=== PATIENT | female | born 1960 | race American Indian/Alaskan Native ===

== ENCOUNTER 2019-03-18 19:52 | Emergency (ER) | payer MEDICARE ==
[2019-03-18 19:59] VITALS: BP 152/92
--- NOTE | 2019-03-18 20:14 | Emergency Department Report ---
Blank Doc - Documentation Documentation: This is a 58-year-old female that presents with numbness sensation to bilateral legs and hands with pain. This initial assessment/diagnostic orders/clinical plan/treatment(s) is/are subject to change based on patient's health status, clinical progression and re- assessment by fellow clinical providers in the ED. Further treatment and workup at subsequent clinical providers discretion. Patient/guardians urged not to elope from the ED as their condition may be serious if not clinically assessed and managed. Initial orders include: 1- Patient sent to [facility] for further evaluation and treatment 2- labs
[2019-03-18 20:41] LABS: Basophils % (Auto) 0.6 % (0.0-1.8); Eosinophils # (Auto) 0.2 K/mm3 (0.0-0.4); Eosinophils % (Auto) 3.1 % (0.0-4.3); Hematocrit 37.4 % (30.3-42.9); Hemoglobin 12.6 gm/dl (10.1-14.3); Lymphocytes # (Auto) 3.4 K/mm3 (1.2-5.4); Lymphocytes % (Auto) 47.5 % (13.4-35.0); Mean Corpuscular HGB Conc 34 % (30-34); Mean Corpuscular Volume 86 fl (79-97); Monocytes # (Auto) 0.5 K/mm3 (0.0-0.8); Monocytes % (Auto) 7.5 % (0.0-7.3); Platelet Count 264 K/mm3 (140-440); Red Blood Count 4.33 M/mm3 (3.65-5.03); Red Cell Distribution Width 16.5 % (13.2-15.2)
[2019-03-18 20:55] LABS: BUN/Creatinine Ratio 19; Blood Urea Nitrogen 17 mg/dL (7-17); Calcium 9.6 mg/dL (8.4-10.2); Hemolysis Index 8
[2019-03-18] MEDS ORDERED: NORCO 5/325 PO ONE (22:09)
--- NOTE | 2019-03-18 22:13 | Emergency Department Report ---
ED General Adult HPI - General Chief complaint: Pain General Stated complaint: BODY PAIN Time Seen by Provider: 03/18/19 20:13 Source: patient Mode of arrival: Ambulatory Limitations: Physical Limitation - History of Present Illness Initial comments: This is a 58-year-old female that presents with numbness sensation to bilateral legs and hands with pain for 3 days pt has hx of lumbar fusion, htn , and dm II denies cva pt remains ambulatory to baseline per patient, pt denies dx of diabetic neuropathy. does have pcp is taking tylenol prn pain. Onset/Timin -: days(s) Location: back, upper extremity, lower extremity (was some she) Radiation: extremity ( was) Severity scale (0 -10): 5 Quality: burning, aching Consistency: constant Improves with: none Worsens with: movement (obvious was numb will) Associated Symptoms: denies: weakness Treatments Prior to Arrival: none - Related Data Previous Rx's Medication Instructions Recorded Last Taken Type Acetaminophen [Mapap] 1,000 mg PO QID PRN #60 capsule 03/19/19 Unknown Rx Cyclobenzaprine [Flexeril] 10 mg PO TID PRN #30 tablet 03/19/19 Unknown Rx Diclofenac 1% [Diclofenac 1% 1 applicatio TP QID PRN #1 tube 03/19/19 Unknown Rx topical gel] Allergies Allergy/AdvReac Type Severity Reaction Status Date / Time aspirin Allergy Unknown Verified 03/18/19 19:57 lisinopril Allergy Angioedema Verified 03/18/19 19:57 Penicillins Allergy Swelling Verified 03/18/19 19:57 tramadol Allergy Itching Verified 03/18/19 19:57 ED Review of Systems ROS: Stated complaint: BODY PAIN Other details as noted in HPI Constitutional: denies: chills, fever Eyes: denies: eye pain, eye discharge, vision change ENT: denies: ear pain, throat pain Respiratory: denies: cough, shortness of breath, wheezing Cardiovascular: denies: chest pain, palpitations Endocrine: no symptoms reported Gastrointestinal: denies: abdominal pain, nausea, vomiting, diarrhea Genitourinary: denies: urgency, dysuria, discharge Musculoskeletal: back pain, arthralgia, myalgia. denies: joint swelling Skin: denies: rash, lesions Neurological: denies: headache, weakness, numbness, paresthesias, confusion, vertigo Psychiatric: denies: anxiety, depression Hematological/Lymphatic: denies: easy bleeding, easy bruising ED Past Medical Hx - Past Medical History Previous Medical History?: Yes Hx Hypertension: Yes Additional medical history: High Cholestrol - Surgical History Past Surgical History?: Yes Additional Surgical History: Lumbar Fusion 2004, Patient states she has a stent on the left and has had a bypass on the right - Social History Smoking Status: Former Smoker - Medications Home Medications: Home Medications Medication Instructions Recorded Confirmed Last Taken Type Acetaminophen [Mapap] 1,000 mg PO QID PRN #60 capsule 03/19/19 Unknown Rx Cyclobenzaprine [Flexeril] 10 mg PO TID PRN #30 tablet 03/19/19 Unknown Rx Diclofenac 1% [Diclofenac 1% 1 applicatio TP QID PRN #1 tube 03/19/19 Unknown Rx topical gel] ED Physical Exam - General Limitations: Physical Limitation General appearance: alert (R), in no apparent distress - Head Head exam: Present: atraumatic, normocephalic - Eye Eye exam: Present: normal appearance, PERRL, EOMI Pupils: Present: normal accommodation - ENT ENT exam: Present: mucous membranes moist - Neck Neck exam: Present: normal inspection, tenderness, full ROM. Absent: meningismus, lymphadenopathy, thyromegaly - Expanded Neck Exam Expanded Neck exam: Present: tenderness (bialt lateral neck muscle tenderness to deep palpation ). Absent: midline deformity, anterior neck swelling, thyroid mass, carotid bruit, tracheal deviation - Respiratory Respiratory exam: Present: normal lung sounds bilaterally. Absent: respiratory distress, wheezes, stridor, chest wall tenderness - Cardiovascular Cardiovascular Exam: Present: regular rate, normal rhythm, normal heart sounds. Absent: systolic murmur, diastolic murmur, rubs, gallop - GI/Abdominal GI/Abdominal exam: Present: soft, normal bowel sounds. Absent: distended, tenderness, bruit, hernia - Rectal Rectal exam: Present: deferred - Extremities Exam Extremities exam: Present: normal inspection, full ROM, normal capillary refill. Absent: tenderness, pedal edema, joint swelling, calf tenderness - Back Exam Back exam: Present: normal inspection, full ROM, tenderness (unremarkable), muscle spasm, paraspinal tenderness. Absent: CVA tenderness (R), CVA tenderness (L), vertebral tenderness, rash noted - Expanded Back Exam Expanded Back exam: Absent: saddle anesthesia Back exam: Positive Straight Leg Raise: Left, Right - Neurological Exam Neurological exam: Present: alert, oriented X3, CN II-XII intact, normal gait, reflexes normal. Absent: motor sensory deficit - Psychiatric Psychiatric exam: Present: normal affect, normal mood - Skin Skin exam: Present: warm, dry, intact, normal color. Absent: rash ED Course Vital Signs 03/18/19 03/18/19 03/18/19 19:57 20:15 22:20 Temperature 98.1 F 98.1 F Pulse Rate 77 77 Respiratory 16 16 16 Rate Blood Pressure 152/92 152/92 O2 Sat by Pulse 99 99 Oximetry ED Medical Decision Making - Lab Data Result diagrams: 03/18/19 20:26 03/18/19 20:26 - Radiology Data Radiology results: report reviewed, image reviewed Ordering Physician: ROSY UMAÑA NP Date of Service: 03/18/19 Procedure(s): CT head/brain wo con Accession Number(s): [id number] cc: ROSY UMAÑA NP CT head/brain wo con INDICATION: MAIN: weakness NUMBESS UN STEADY GAIT . TECHNIQUE: All CT scans at this location are performed using CT dose reduction for ALARA by means of automated exposure control. COMPARISON: None available. FINDINGS: Visualized paranasal and mastoid sinuses are clear. Ventricles are symmetrical and normal in size. No mass, hemorrhage or other significant abnormality. IMPRESSION: 1. Negative study. Signer Name: Israel Disla MD Signed: 03/18/2019 10:57 PM Workstation Name: [id number] Transcribed By: TM Dictated By: Israel Disla MD Electronically Authenticated By: Israel Disla MD Signed Date/Time: 03/18/192256 DD/ 54 TD/TT: Ordering Physician: ROSY UMAÑA NP Date of Service: 03/18/19 Procedure(s): CT cervical spine wo con Accession Number(s): [id number] cc: ROSY UMAÑA NP CT cervical spine wo con INDICATION: MAIN: weakness numbness UNSTEADY GAIT . TECHNIQUE: All CT scans at this location are performed using CT dose reduction for ALARA by means of automated exposure control. COMPARISON: None FINDINGS: Moderate spondylosis, especially from C4 to C6. Extensive facet degenerative change, especially at the cervical thoracic junction. No acute fracture or subluxation. IMPRESSION: 1. No acute abnormality. Signer Name: Israel Disla MD Signed: 03/18/2019 10:55 PM Workstation Name: [id number] Transcribed By: TM Dictated By: Israel Disla MD Electronically Authenticated By: Israel Disla MD Signed Date/Time: 03/18/192254 DD/ 51 TD/TT: - Medical Decision Making CT Head normal no mass or bleed no abnormality, Cspine Degenerative Disesas C5- C6, lumar xray DDD, Hardware intact , no acute fracture symptoms are improved plan, dc to home with rx for diclofenac, prednisone, flexeril, pt will follow up with pcp in 2-3 days. pt verbalized agreement and understanding of discharge plan. Critical care attestation.: If time is entered above; I have spent that time in minutes in the direct care of this critically ill patient, excluding procedure time. ED Disposition Clinical Impression: Peripheral neuropathic pain, DDD (degenerative disc disease), lumbosacral Degenerative disk disease Qualifiers: Spinal region: mid-cervical Mid-cervical spinal level: unspecified Qualified Code(s): M50.320 - Other cervical disc degeneration, mid-cervical region, unspecified level Arthralgia Qualifiers: Joint pain location: unspecified Qualified Code(s): M25.50 - Pain in unspecified joint Disposition: DC-01 TO HOME OR SELFCARE Is pt being admited?: No Does the pt Need Aspirin: No Condition: Stable Instructions: Arthralgia (ED), Peripheral Neuropathy (ED), Degenerative Disc D isease (ED) Prescriptions: Diclofenac 1% [Diclofenac 1% topical gel] 1 applicatio TP QID PRN #1 tube PRN Reason: pain Cyclobenzaprine [Flexeril] 10 mg PO TID PRN #30 tablet PRN Reason: Muscle Spasm Acetaminophen [Mapap] 1,000 mg PO QID PRN #60 capsule PRN Reason: pain Referrals: PRIMARY CARE, [Primary Care Provider] - 3-5 Days Forms: Work/School Release Form(ED) Time of Disposition: 00:10
--- NOTE | 2019-03-18 23:00 | Cat Scan Report ---
CT cervical spine wo con INDICATION: MAIN: weakness numbness UNSTEADY GAIT . TECHNIQUE: All CT scans at this location are performed using CT dose reduction for ALARA by means of automated e xposure control. COMPARISON: None FINDINGS: Moderate spondylosis, especially from C4 to C6. Extensive facet degenerative change, especially at th e cervical thoracic junction. No acute fracture or subluxation. IMPRESSION: 1. No acute abnormality. Signer Name: Israel Disla MD Signed: 03/18/2019 10:55 PM Workstation Name: [id number]
--- NOTE | 2019-03-18 23:01 | Cat Scan Report ---
CT head/brain wo con INDICATION: MAIN: weakness NUMBESS UN STEADY GAIT . TECHNIQUE: All CT scans at this location are performed using CT dose reduction for ALARA by means of automated e xposure control. COMPARISON: None available. FINDINGS: Visualized paranasal and mastoid sinuses are clear. Ventricles are symmetrical and normal in size. No mass, hemorrhage or other significant abnormality. IMPRESSION: 1. Negative study. Signer Name: Israel Disla MD Signed: 03/18/2019 10:57 PM Workstation Name: [id number]
--- NOTE | 2019-03-18 23:51 | XRay Report ---
LUMBAR SPINE, AP AND LATERAL VIEWS INDICATION / CLINICAL INFORMATION: weakness numbness legs. COMPARISON: None available. FINDINGS: Posterior fusion with pedicle screws at L5-S1. There is mild thoracolumbar scoliosis. Intervertebral disc spaces above the level of fusion appear well-maintained. No evidence of subluxation. Signer Name: Delroy Chung MD Signed: 03/18/2019 11:47 PM Workstation Name: [id number]
== END 2019-03-19 00:41 | disposition home or self-care (01) ==
LOC: EDSEX → ED 19:52
DX: M51.37 Other intervertebral disc degeneration, lumbosacral region (principal); G58.8 Other specified mononeuropathies; I10 Essential (primary) hypertension; E78.00 Pure hypercholesterolemia, unspecified; Z98.890 Other specified postprocedural states; Z87.891 Personal history of nicotine dependence; Z79.899 Other long term (current) drug therapy; Z88.6 Allergy status to analgesic agent; Z88.0 Allergy status to penicillin; Z88.8 Allergy status to other drugs, medicaments and biological substances
CPT/HCPCS: 36415; 70450; 72100; 72125; 80048; 84484; 85025; 93005; 93010; 99284

== ENCOUNTER 2019-05-05 08:36 | Inpatient (IN) | payer MEDICARE ==
[2019-05-05] MEDS ORDERED: DILAUDID IV ONE ×2 (10:56→14:03)
[2019-05-05 11:19] LABS: Hematocrit 43.8 % (30.3-42.9); Hemoglobin 14.5 gm/dl (10.1-14.3); Mean Corpuscular HGB Conc 33 % (30-34); Mean Corpuscular Volume 88 fl (79-97); Platelet Count 294 K/mm3 (140-440); Red Blood Count 5.01 M/mm3 (3.65-5.03); Red Cell Distribution Width 16.8 % (13.2-15.2)
[2019-05-05 11:27] LABS: INR 0.98 (0.87-1.13)
[2019-05-05 11:29] LABS: Partial Thromboplastin Time 26.9 Sec. (24.2-36.6)
[2019-05-05 11:36] LABS: Albumin 4.3 g/dL (3.9-5); BUN/Creatinine Ratio 23; Blood Urea Nitrogen 25 mg/dL (7-17); Calcium 9.9 mg/dL (8.4-10.2); Hemolysis Index 108
[2019-05-05 11:39] LABS: Alanine Aminotransferase 101 units/L (7-56)
[2019-05-05 12:18] LABS: Basophils % (Manual) 0 % (0.0-1.8); Eosinophils % (Manual) 0 % (0.0-4.3); Platelet Estimate Consistent w Auto; RBC Morphology Normal; Total Cells Counted 100
--- NOTE | 2019-05-05 14:54 | Cat Scan Report ---
CT angio abd/femoral abd aorta INDICATION / CLINICAL INFORMATION: no pulse in the right leg with right leg pain. TECHNIQUE: Axial CT images were obtained after injection of 150 cc of Omnipaque 350 IV contrast using CTA protoc ol. 3 plane MIP / 3D reconstructions were produced. All CT scans at this location are performed using CT dose reduction for ALARA by means of automated exposure control. COMPARISON: None available. FINDINGS: Diffuse atherosclerotic changes present. There is occlusion of the right common iliac artery at the b ifurcation into the internal and external branches. The right common femoral artery and right superfi cial femoral artery are not opacified. No contrast seen at the knee or below. The left-sided vessels are patent although the superficial femoral artery is very small in diameter especially in the proxim al left thigh. The upper abdomen is not included on this exam. No free fluid is seen in the visualized portions of t he abdomen. Diffuse fatty infiltration is seen in the liver without focal abnormality in the visualiz ed portions. A small right renal cyst is present. Visualized portions of the spleen, left kidney, steinberg creas and adrenal glands are normal. In the pelvis, no free fluid is seen. No enlarged lymph nodes are identified. The bladder and the ceci endix are normal. IMPRESSION: 1. Occlusion of the right common iliac artery at the bifurcation of the internal and external branche s. Very little collateral flow is seen down the right leg. The right superficial femoral and poplitea l arteries are not opacified with contrast 2. Diffuse fatty infiltration in the visualized portions of the liver without focal abnormality 3. Small right renal cyst Signer Name: Naif Alonso MD FACR Signed: 05/05/2019 2:50 PM Workstation Name: [id number]
[2019-05-05] MEDS ORDERED: HEPARIN 10,000 UNITS/10 ML IV ONE (15:02)
--- NOTE | 2019-05-05 15:10 | Emergency Department Report ---
ED General Adult HPI - General Chief complaint: Extremity Injury, Lower Stated complaint: RIGHT LEG PAIN Time Seen by Provider: 05/05/19 08:49 Source: EMS Mode of arrival: Stretcher Limitations: No Limitations - History of Present Illness Initial comments: Patient is a 58-year-old female past medical history of tobacco abuse and high blood pressure who presents with right leg pain that has been going on for the last couple hours. Patient states that it hurts to move her leg and that it is felt "cold". Patient states that walking makes the pain worse nothing makes the pain better. Patient denies having any trauma towards leg. Patient is a pack p er day smoker. Severity scale (0 -10): 7 - Related Data Previous Rx's Medication Instructions Recorded Last Taken Type Acetaminophen [Mapap] 1,000 mg PO QID PRN #60 capsule 03/19/19 Unknown Rx Cyclobenzaprine [Flexeril] 10 mg PO TID PRN #30 tablet 03/19/19 Unknown Rx Diclofenac 1% [Diclofenac 1% 1 applicatio TP QID PRN #1 tube 03/19/19 Unknown Rx topical gel] Allergies Allergy/AdvReac Type Severity Reaction Status Date / Time aspirin Allergy Unknown Verified 05/05/19 15:05 lisinopril Allergy Angioedema Verified 05/05/19 15:05 Penicillins Allergy Swelling Verified 05/05/19 15:05 tramadol Allergy Itching Verified 05/05/19 15:05 ED Review of Systems ROS: Stated complaint: RIGHT LEG PAIN Other details as noted in HPI Constitutional: denies: chills, fever Eyes: denies: eye pain, eye discharge, vision change ENT: denies: ear pain, throat pain Respiratory: denies: cough, shortness of breath, wheezing Cardiovascular: denies: chest pain, palpitations Endocrine: no symptoms reported Gastrointestinal: denies: abdominal pain, nausea, diarrhea Genitourinary: denies: urgency, dysuria, discharge Musculoskeletal: as per HPI, myalgia. denies: back pain, joint swelling, arthralgia Skin: denies: rash, lesions Neurological: denies: headache, weakness, paresthesias Psychiatric: denies: anxiety, depression Hematological/Lymphatic: denies: easy bleeding, easy bruising ED Past Medical Hx - Past Medical History Hx Hypertension: Yes Additional medical history: High Cholestrol - Surgical History Past Surgical History?: No Additional Surgical History: Lumbar Fusion 2004, Patient states she has a stent on the left and has had a bypass on the right - Social History Smoking Status: Never Smoker - Medications Home Medications: Home Medications Medication Instructions Recorded Confirmed Last Taken Type Acetaminophen [Mapap] 1,000 mg PO QID PRN #60 capsule 03/19/19 Unknown Rx Cyclobenzaprine [Flexeril] 10 mg PO TID PRN #30 tablet 03/19/19 Unknown Rx Diclofenac 1% [Diclofenac 1% 1 applicatio TP QID PRN #1 tube 03/19/19 Unknown Rx topical gel] ED Physical Exam - General Limitations: No Limitations General appearance: alert, in no apparent distress - Head Head exam: Present: atraumatic, normocephalic - Eye Eye exam: Present: normal appearance - ENT ENT exam: Present: mucous membranes moist - Neck Neck exam: Present: normal inspection - Respiratory Respiratory exam: Present: normal lung sounds bilaterally. Absent: respiratory distress - Cardiovascular Cardiovascular Exam: Present: regular rate, normal rhythm. Absent: systolic murmur, diastolic murmur, rubs, gallop - GI/Abdominal GI/Abdominal exam: Present: soft, normal bowel sounds - Extremities Exam Extremities exam: Present: normal inspection - Expanded Lower Extremity Exam Right Hip exam: Present: normal inspection Upper Leg exam: Present: normal inspection Knee exam: Present: normal inspection Neuro vascular tendon exam: Present: pulse deficit, abnormal cap refill, motor deficit (pain with active movement limited range of motion in foot ), sensory deficit, extremity cold to touch - Back Exam Back exam: Present: normal inspection - Neurological Exam Neurological exam: Present: alert, oriented X3 - Psychiatric Psychiatric exam: Present: normal affect, normal mood - Skin Skin exam: Present: warm, dry, intact, normal color. Absent: rash ED Course Vital Signs 05/05/19 05/05/19 05/05/19 09:10 10:58 11:46 Temperature 98.5 F Pulse Rate 107 H 110 H 103 H Respiratory 17 18 18 Rate Blood Pressure 213/100 Blood Pressure 174/99 218/107 [Right] O2 Sat by Pulse 100 100 96 Oximetry - Consultations Consultation #1: 05/05/19 15:[address] Pretty vascular surgeon patient will need to go to [facility] to remove clot from right leg patient will be kept nothing by mouth and I will admit the patient to the hospitalist service. ED Medical Decision Making - Lab Data Result diagrams: 05/05/19 09:10 05/05/19 09:10 Lab Results 05/05/19 05/05/19 05/05/19 Range/Units 09:10 09:10 09:10 WBC 19.7 H (4.5-11.0) K/mm3 RBC 5.01 (3.65-5.03) M/mm3 Hgb 14.5 H (10.1-14.3) gm/dl Hct 43.8 H (30.3-42.9) % MCV 88 (79-97) fl MCH 29 (28-32) pg MCHC 33 (30-34) % RDW 16.8 H (13.2-15.2) % Plt Count 294 (140-440) K/mm3 Lymph # [employer] Add Manual Diff Complete Total Counted 100 Seg Neuts % (Manual) 73.0 H (40.0-70.0) % Band Neutrophils % 0 % Lymphocytes % (Manual) 24.0 (13.4-35.0) % Reactive Lymphs % (Man) 0 % Monocytes % (Manual) 3.0 (0.0-7.3) % Eosinophils % (Manual) 0 (0.0-4.3) % Basophils % (Manual) 0 (0.0-1.8) % Metamyelocytes % 0 % Myelocytes % 0 % Promyelocytes % 0 % Blast Cells % 0 % Nucleated RBC % Not Reportable Seg Neutrophils # Man 14.4 H (1.8-7.7) K/mm3 Band Neutrophils # 0.0 K/mm3 Lymphocytes # (Manual) 4.7 (1.2-5.4) K/mm3 Abs React Lymphs (Man) 0.0 K/mm3 Monocytes # (Manual) 0.6 (0.0-0.8) K/mm3 Eosinophils # (Manual) 0.0 (0.0-0.4) K/mm3 Basophils # (Manual) 0.0 (0.0-0.1) K/mm3 Metamyelocytes # 0.0 K/mm3 Myelocytes # 0.0 K/mm3 Promyelocytes # 0.0 K/mm3 Blast Cells # 0.0 K/mm3 WBC Morphology Not Reportable Hypersegmented Neuts Not Reportable Hyposegmented Neuts Not Reportable Hypogranular Neuts Not Reportable Smudge Cells Not Reportable Toxic Granulation Not Reportable Toxic Vacuolation Not Reportable Dohle Bodies Not Reportable Pelger-Huet Anomaly Not Reportable Josselyn Rods Not Reportable Platelet Estimate Consistent w auto Clumped Platelets Not Reportable Plt Clumps, EDTA Not Reportable Large Platelets Not Reportable Giant Platelets Not Reportable Platelet Satelliting Not Reportable Plt Morphology Comment Not Reportable RBC Morphology Normal Dimorphic RBCs Not Reportable Polychromasia Not Reportable Hypochromasia Not Reportable Poikilocytosis Not Reportable Anisocytosis Not Reportable Microcytosis Not Reportable Macrocytosis Not Reportable Spherocytes Not Reportable Pappenheimer Bodies Not Reportable Sickle Cells Not Reportable Target Cells Not Reportable Tear Drop Cells Not Reportable Ovalocytes Not Reportable Helmet Cells Not Reportable Amaro-Newnan Bodies Not Reportable [place] Rings Not Reportable [place] Cells Not Reportable Bite Cells Not Reportable Crenated Cell Not Reportable Elliptocytes Not Reportable Acanthocytes (Spur) Not Reportable Rouleaux Not Reportable Hemoglobin C Crystals Not Reportable Schistocytes Not Reportable Malaria parasites Not Reportable Dimitri Bodies Not Reportable Hem Pathologist Commnt No PT 12.7 (12.2-14.9) Sec. INR 0.98 (0.87-1.13) APTT 26.9 (24.2-36.6) Sec. Sodium 137 (137-145) mmol/L Potassium 4.3 (3.6-5.0) mmol/L Chloride 98.3 (98-107) mmol/L Carbon Dioxide 22 (22-30) mmol/L Anion Gap 21 mmol/L BUN 25 H (7-17) mg/dL Creatinine 1.1 (0.7-1.2) mg/dL Estimated GFR > 60 ml/min BUN/Creatinine Ratio 23 % Glucose 137 H (65-100) mg/dL Calcium 9.9 (8.4-10.2) mg/dL Total Bilirubin 0.60 (0.1-1.2) mg/dL AST 204 H (5-40) units/L ALT 101 H (7-56) units/L Alkaline Phosphatase 106 (35-129) units/L Total Protein 8.3 H (6.3-8.2) g/dL Albumin 4.3 (3.9-5) g/dL Albumin/Globulin Ratio 1.1 % 05/05/19 05/05/19 Range/Units 15:05 15:05 WBC (4.5-11.0) K/mm3 RBC (3.65-5.03) M/mm3 Hgb 14.3 (10.1-14.3) gm/dl Hct 41.4 (30.3-42.9) % MCV (79-97) fl MCH (28-32) pg MCHC (30-34) % RDW (13.2-15.2) % Plt Count 264 (140-440) K/mm3 Lymph # Add Manual Diff Total Counted Seg Neuts % (Manual) (40.0-70.0) % Band Neutrophils % % Lymphocytes % (Manual) (13.4-35.0) % Reactive Lymphs % (Man) % Monocytes % (Manual) (0.0-7.3) % Eosinophils % (Manual) (0.0-4.3) % Basophils % (Manual) (0.0-1.8) % Metamyelocytes % % Myelocytes % % Promyelocytes % % Blast Cells % % Nucleated RBC % Seg Neutrophils # Man (1.8-7.7) K/mm3 Band Neutrophils # K/mm3 Lymphocytes # (Manual) (1.2-5.4) K/mm3 Abs React Lymphs (Man) K/mm3 Monocytes # (Manual) (0.0-0.8) K/mm3 Eosinophils # (Manual) (0.0-0.4) K/mm3 Basophils # (Manual) (0.0-0.1) K/mm3 Metamyelocytes # K/mm3 Myelocytes # K/mm3 Promyelocytes # K/mm3 Blast Cells # K/mm3 WBC Morphology Hypersegmented Neuts Hyposegmented Neuts Hypogranular Neuts Smudge Cells Toxic Granulation Toxic Vacuolation Dohle Bodies Pelger-Huet Anomaly Josselyn Rods Platelet Estimate Clumped Platelets Plt Clumps, EDTA Large Platelets Giant Platelets Platelet Satelliting Plt Morphology Comment RBC Morphology Dimorphic RBCs Polychromasia Hypochromasia Poikilocytosis Anisocytosis Microcytosis Macrocytosis Spherocytes Pappenheimer Bodies Sickle Cells Target Cells Tear Drop Cells Ovalocytes Helmet Cells Amaro-Newnan Bodies [place] Cells Bite Cells Crenated Cell Elliptocytes Acanthocytes (Spur) Rouleaux Hemoglobin C Crystals Schistocytes Malaria parasites Dimitri Bodies Hem Pathologist Commnt PT 13.3 (12.2-14.9) Sec. INR 1.04 (0.87-1.13) APTT 26.0 (24.2-36.6) Sec. Sodium (137-145) mmol/L Potassium (3.6-5.0) mmol/L Chloride (98-107) mmol/L Carbon Dioxide (22-30) mmol/L Anion Gap mmol/L BUN (7-17) mg/dL Creatinine (0.7-1.2) mg/dL Estimated GFR ml/min BUN/Creatinine Ratio % Glucose (65-100) mg/dL Calcium (8.4-10.2) mg/dL Total Bilirubin (0.1-1.2) mg/dL AST (5-40) units/L ALT (7-56) units/L Alkaline Phosphatase (35-129) units/L Total Protein (6.3-8.2) g/dL Albumin (3.9-5) g/dL Albumin/Globulin Ratio % - Radiology Data Radiology results: report reviewed, image reviewed CT and she will with abdominal aortic run off: Shows occlusion of the right common iliac artery at the bifurcation of the internal and external branches - Medical Decision Making Medical diagnosis: Occlusion of right common iliac artery Differential medical diagnosis: DVT, claudication secondary to compartment syndrome I will get blood work and I will place patient on IV heparin drip patient also get a stat CT angio of leg. Pt will be admitted to the hospitalist service. Critical Care Time: Yes (60) Critical care time in (mins) excluding proc time.: 60 Critical care attestation.: If time is entered above; I have spent that time in minutes in the direct care of this critically ill patient, excluding procedure time. Medical care time spent at patient's bedside 30 minutes Critical care time spent with consultants 10 minutes critical care time spent reviewing imaging findings 10 minutes Critical care time spent reviewing lab work 10 minutes ED Disposition Clinical Impression: Arterial occlusion, Right leg pain Disposition: OP ADMIT IP TO THIS HOSP Is pt being admited?: Yes Does the pt Need Aspirin: No Condition: Stable Referrals: PRIMARY CARE, [Primary Care Provider] - 3-5 Days
[2019-05-05 15:22] LABS: Hematocrit 41.4 % (30.3-42.9); Hemoglobin 14.3 gm/dl (10.1-14.3)
[2019-05-05 15:35] LABS: INR 1.04 (0.87-1.13)
[2019-05-05] MEDS ORDERED: HEPARIN 10,000 UNITS/10 ML ONE (15:52)
[2019-05-05] MEDS ORDERED: HEPARIN/NS 5000 UNIT/500ML(CATH LAB) 1,000 ML IR ONE (15:52)
[2019-05-05] MEDS: HEPARIN/ 0.45% NACL-25,000 UNIT/500 ML 25,000 UNIT/500 ML BAG IV SCH (15:54)
[2019-05-05] MEDS ORDERED: VERSED ONE ×2 (16:11→18:21)
[2019-05-05] MEDS ORDERED: HEPARIN/NS 5000 UNIT/500ML(CATH LAB) 500 ML IR ONE ×2 (16:38→18:18)
[2019-05-05] MEDS ORDERED: NACL 0.9% 100 ML ONE (16:40)
[2019-05-05] MEDS ORDERED: CATHFLO ONE (16:40)
[2019-05-05] MEDS ORDERED: NACL 0.9% 250ML 250 ML ONE (16:58)
--- NOTE | 2019-05-05 16:58 | History and Physical Report ---
History of Present Illness Chief complaint: My right leg hurts History of present illness: 58 YO Female with HTN, HLD, PVD S/P Bypass surgery, Nicotine Dependence, presents to ED for evaluation. Pt states that she has experienced pain in her right leg over the past 3 hours with progressively worsening pain over the same time frame. Pt states that her leg pain is 7/10, constant, worsening, worsened with movement. Pt states that her leg "feels cold". EMS notified and upon arrival the patient was found to be in distress, and transported to [facility]. Pt seen and evaluated in ED and found to have RLE Ischemia, SIRS. Vascular surgery team notified in ED, and patient taken urgently to [facility] for intervention. Pt denies fever, chills, CP, Palpitations, NVD, Trauma, skin rash, or recent ill contacts. No prior admission for review. All listed medication reconciled at time of admission. Past History Past Medical History: hypertension, hyperlipidemia, PVD Past Surgical History: Other (Vascular surgery) Social history: single, smoking Family history: diabetes, hypertension Medications and Allergies Allergies Allergy/AdvReac Type Severity Reaction Status Date / Time aspirin Allergy Unknown Verified 05/05/19 15:05 lisinopril Allergy Angioedema Verified 05/05/19 15:05 Penicillins Allergy Swelling Verified 05/05/19 15:05 tramadol Allergy Itching Verified 05/05/19 15:05 Home Medications Medication Instructions Recorded Confirmed Last Taken Type Acetaminophen [Mapap] 1,000 mg PO QID PRN #60 capsule 03/19/19 Unknown Rx Cyclobenzaprine [Flexeril] 10 mg PO TID PRN #30 tablet 03/19/19 Unknown Rx Diclofenac 1% [Diclofenac 1% 1 applicatio TP QID PRN #1 tube 03/19/19 Unknown Rx topical gel] Active Meds: Active Medications Heparin Sodium/Sodium Chloride (Heparin/ 0.45% Nacl-25,000 Unit/500 Ml) 25,000 unit in 500 mls @ 26 mls/hr IV TITR MIHAI; Protocol Last Admin: 05/05/19 15:54 Dose: 1,300 units/hr, 26 mls/hr Documented by: Review of Systems Constitutional: no weight loss, no weight gain, no fever, no chills Ears, nose, mouth and throat: no ear pain, no ear discharge, no tinnitis, no dec reased hearing, no nose pain, no nasal discharge, no sinus pressure Breasts: no change in shape, no swelling, no mass Cardiovascular: no chest pain, no orthopnea, no palpitations, no rapid/irregular heart beat, no edema, no syncope, no lightheadedness Respiratory: no cough, no cough with sputum, no excessive sputum, no dyspnea on exertion Gastrointestinal: no abdominal pain, no nausea, no vomiting, no constipation, no change in bowel habits, no hematemesis Genitourinary Female: no pelvic pain, no flank pain, no menorrhagia, no dysuria, no urinary frequency, no urgency Rectal: no pain, no incontinence, no bleeding Musculoskeletal: other (Leg pain, cold leg), no neck stiffness, no neck pain, no shooting arm pain, no arm numbness/tingling, no low back pain Integumentary: no rash, no pruritis, no sores, no boils Neurological: no transient paralysis, no paralysis, no parathesias, no syncope, no tremors, no ataxia, no lack of coordination Psychiatric: no anxiety, no memory loss, no change in sleep habits, no insomnia, no change in appetite, no change in libido, no disorientation, no hallucinations Endocrine: no cold intolerance, no heat intolerance, no polydipsia, no nocturia, no excessive sweating, no flushing Hematologic/Lymphatic: no easy bruising, no easy bleeding, no lymphadenopathy, no lymphedema Allergic/Immunologic: no urticaria, no allergic rhinitis, no wheezing, no persistent infections, no anaphylaxis Exam - Constitutional Vitals: Temp Pulse Resp BP Pulse Ox 97.6 F 104 H 16 188/108 98 05/05/19 15:51 05/05/19 15:51 05/05/19 15:51 05/05/19 15:51 05/05/19 15:51 General appearance: Present: mild distress - EENT Eyes: Present: PERRL ENT: hearing intact, clear oral mucosa - Neck Neck: Present: supple, normal ROM - Respiratory Respiratory effort: normal Respiratory: bilateral: CTA - Cardiovascular Heart Sounds: Present: S1 & S2. Absent: rub, click - Extremities Extremity abnormal: cyanosis, pulses diminished, tenderness, other (RLE) Peripheral Pulses: abnormal - Abdominal General gastrointestinal: Present: soft, non-tender, non-distended, normal bowel sounds Female genitourinary: Present: normal - Integumentary Integumentary: Present: clear, warm, dry - Musculoskeletal Musculoskeletal: gait normal, strength equal bilaterally - Psychiatric Psychiatric: appropriate mood/affect, intact judgment & insight - Neurologic Neurologic: CNII-XII intact, moves all extremities Results - Labs CBC & Chem 7: 05/06/19 04:17 05/06/19 04:17 Labs: Abnormal lab results 05/05/19 05/05/19 Range/Units 09:10 09:10 WBC 19.7 H (4.5-11.0) K/mm3 Hgb 14.5 H (10.1-14.3) gm/dl Hct 43.8 H (30.3-42.9) % RDW 16.8 H (13.2-15.2) % Seg Neuts % (Manual) 73.0 H (40.0-70.0) % Seg Neutrophils # Man 14.4 H (1.8-7.7) K/mm3 BUN 25 H (7-17) mg/dL Glucose 137 H (65-100) mg/dL AST 204 H (5-40) units/L ALT 101 H (7-56) units/L Total Protein 8.3 H (6.3-8.2) g/dL Assessment and Plan - Patient Problems (1) Arterial occlusion Current Visit: Yes Status: Acute Plan to address problem: Heparin drip, Vascular surgery consulted in ED, Pending surgical intervention, pain control, supportive care, CTA to RLE, (2) SIRS (systemic inflammatory response syndrome) Current Visit: Yes Status: Acute Plan to address problem: IV antibiotic therapy, CBC, URINALYSIS, CMP,Chest x ray, monitor uop q shift, suprtive care. (3) Nicotine dependence with withdrawal Current Visit: Yes Status: Acute Qualifiers: Nicotine product type: cigarettes Qualified Code(s): F17.213 - Nicotine dependence, cigarettes, with withdrawal Plan to address problem: Smoking cessation counseling, +15 minutes, supportive care (4) PVD (peripheral vascular disease) with claudication Current Visit: Yes Status: Acute Plan to address problem: Risk factor reduction, Vascular service consulted, lipid panel, low fat/low cholesterol diet, supportive care, smoking cessation (5) HTN (hypertension) Current Visit: Yes Status: Acute Qualifiers: Hypertension type: essential hypertension Qualified Code(s): I10 - Essential (primary) hypertension Plan to address problem: Monitor bp q shift, continue medical management (6) HLD (hyperlipidemia) Current Visit: Yes Status: Acute Qualifiers: Hyperlipidemia type: mixed hyperlipidemia Qualified Code(s): E78.2 - Mixed hyperlipidemia Plan to address problem: Statin therapy, lipid panel, (7) DVT prophylaxis Current Visit: Yes Status: Acute Plan to address problem: SCD to BLE while in bed,
[2019-05-05] MEDS ORDERED: SODIUM CHLORIDE FLUSH SYRINGE 10 ML IV PRN (16:59)
[2019-05-05] MEDS ORDERED: VANCOMYCIN PHARMACY TO DOSE IV SCH (17:00)
[2019-05-05] MEDS ORDERED: VANCOMYCIN/NS 1 GM/250 ML 1 GM/250 ML BAG IV ONE (17:00)
[2019-05-05] MEDS: SUBLIMAZE ONE ×6 (17:20→19:17)
[2019-05-05] MEDS: XYLOCAINE 2% INFILTRATI ONE ×3 (17:22→17:54)
[2019-05-05] MEDS ORDERED: VANCOMYCIN 1,750 MG in NACL 0.9% 500 ML 500 ML IV SCH (18:15)
[2019-05-05] MEDS ORDERED: XYLOCAINE 1% 20 mL ONE (19:10)
[2019-05-05] MEDS ORDERED: XYLOCAINE 2% INFILTRATI ONE (19:10)
--- NOTE | 2019-05-05 19:43 | Consultation ---
History of Present Illness - Reason for Consult Consult date: 05/05/19 RLE acute limb aischemia - History of Present Illness Patient with a history of peripheral vascular disease who was undergone multiple prior interventions including a right common iliac artery to common femoral artery bypass and a left arterial revascularization with stent placement in the SFA with Dr. Llamas at [facility]. Patient presents with a cold right leg from the knee distally. She states that this started on Monday. Patient cannot wiggle her toes or dorsiflex or plantarflex her foot. She is able to bend her leg. She has decreased sensation to the lower extremity. A CTA was performed which demonstrates complete occlusion of all named vessels in the right lower extremity approximately 3 cm below the bifurcation. Additionally, CTA demonstrates pseudoaneurysm at the occipital anastomosis of the common iliac artery to common femoral artery bypass graft. Past History Past Medical History: PVD Past Surgical History: Other (bilateral lower extremity revascularization surgeries) Social history: no significant social history Family history: no significant family history Medications and Allergies Allergies Allergy/AdvReac Type Severity Reaction Status Date / Time aspirin Allergy Unknown Verified 05/05/19 15:05 lisinopril Allergy Angioedema Verified 05/05/19 15:05 Penicillins Allergy Swelling Verified 05/05/19 15:05 tramadol Allergy Itching Verified 05/05/19 15:05 Home Medications Medication Instructions Recorded Confirmed Last Taken Type Acetaminophen [Mapap] 1,000 mg PO QID PRN #60 capsule 03/19/19 Unknown Rx Cyclobenzaprine [Flexeril] 10 mg PO TID PRN #30 tablet 03/19/19 Unknown Rx Diclofenac 1% [Diclofenac 1% 1 applicatio TP QID PRN #1 tube 03/19/19 Unknown Rx topical gel] Active Meds: Active Medications Heparin Sodium/Sodium Chloride (Heparin/ 0.45% Nacl-25,000 Unit/500 Ml) 25,000 unit in 500 mls @ 26 mls/hr IV TITR MIHAI; Protocol Last Admin: 05/05/19 15:54 Dose: 1,300 units/hr, 26 mls/hr Documented by: Vancomycin HCl 1,750 mg/ (Sodium Chloride) 535 mls @ 267.5 mls/hr IV Q24H MIHAI Oxycodone/Acetaminophen (Percocet 5/325) 1 tab PO Q6H PRN PRN Reason: Pain, Moderate (4-6) Sodium Chloride (Sodium Chloride Flush Syringe 10 Ml) 10 ml IV BID MIHAI Sodium Chloride (Sodium Chloride Flush Syringe 10 Ml) 10 ml IV PRN PRN PRN Reason: LINE FLUSH Review of Systems All systems: negative Exam - Constitutional Vitals: Temp Pulse Resp BP Pulse Ox 97.6 F 104 H 16 188/108 98 05/05/19 15:51 05/05/19 15:51 05/05/19 15:51 05/05/19 15:51 05/05/19 15:51 General appearance: Present: mild distress - EENT Eyes: Present: PERRL, EOM intact ENT: hearing intact - Neck Neck: Present: supple, normal ROM - Respiratory Respiratory effort: normal - Cardiovascular Rhythm: regular - Extremities Extremities: abnormal (right limb ischemia) - Abdominal General gastrointestinal: Present: deferred, other (post surgical changes on the right side of the abdomen) Female genitourinary: Present: deferred - Rectal Rectal Exam: deferred - Musculoskeletal Musculoskeletal: right sided weakness - Psychiatric Psychiatric: appropriate mood/affect, cooperative Results - Labs CBC & Chem 7: 05/05/19 15:05 05/05/19 09:10 Labs: Abnormal lab results 05/05/19 05/05/19 Range/Units 09:10 09:10 WBC 19.7 H (4.5-11.0) K/mm3 Hgb 14.5 H (10.1-14.3) gm/dl Hct 43.8 H (30.3-42.9) % RDW 16.8 H (13.2-15.2) % Seg Neuts % (Manual) 73.0 H (40.0-70.0) % Seg Neutrophils # Man 14.4 H (1.8-7.7) K/mm3 BUN 25 H (7-17) mg/dL Glucose 137 H (65-100) mg/dL AST 204 H (5-40) units/L ALT 101 H (7-56) units/L Total Protein 8.3 H (6.3-8.2) g/dL - Imaging and Cardiology CT scan - abdomen: report reviewed, image reviewed CT scan - pelvis: report reviewed, image reviewed Assessment and Plan Patient with acute right limb ischemia that again on Monday with motor loss and sensation loss to her foot and toes. She underwent a revascularization proce dure and thrombectomy of her right lower extremity using AngioJet clinical thrombectomy device secondary to the proximal pseudoaneurysm including the use of catheter directed thrombolysis. Additionally, the patient underwent covered stent placement at the proximal anastomosis as well as stent placement within the distal SFA. At the conclusion of the procedure, the patient had anterior tibial artery runoff to the foot with palpable dorsalis pedis pulse and a dopplerable posterior tibial pulse. She will need to undergo fasciotomies of her right lower leg. Patient will need to remain on a heparin drip. It is likely that she will require a below the knee amputation secondary to tissue loss given the length of time between the onset of ischemia and her presentation to this hospital.
--- NOTE | 2019-05-05 19:56 | Operative Report ---
Operative Report Operative Report: Exam: Right lower extremity thrombectomy and revascularization Clinical indication: Patient with an acutely ischemic right leg Date: 05/05/2019 Procedure: Following an explanation of the risks, benefits and alternatives; written informed consent was obtained. The patient was brought to the anterior gapping suite and placed in supine position on the examination table. Initial ultrasound evaluation of her legs demonstrated a patent left common femoral artery. The patient's bilateral groins were prepped and draped in usual sterile fashion. 1% lidocaine was used for anesthesia. Under ultrasound guidance, the common femoral artery was cannulated with a 7 cm 21-gauge needle. 0.01 a guidewire was advanced centrally. The needle was removed and a micro-sheath placed. The 0.018 guidewire was exchanged Pete 0.035 guidewire and the per sheath exchanged for a 5 Cymro vascular sheath. A 5 Cymro Omni flush catheter is advanced over the guidewire to the distal abdominal aorta. Angiography was performed. This demonstrates complete occlusion of the common iliac artery. There is no reconstitution of distal vessels. The Omni flush catheter was advanced into the occlusion and multiple attempts to cross E occlusion from a proximal location were unsuccessful. Ultrasound evaluation of the patient's right groin was performed and the right bypass graft identified at the common femoral artery. Again was used for anesthesia. Under ultrasound guidance, a 7 cm 21-gauge needle was advanced into the bypass graft at the common femoral artery. 0.018 guidewire was advanced centrally. The needle was removed and a micro-sheath placed. The 0.018 guidewire was exchanged for a 0.035 guidewire and the micro- sheet exchange for a 5 Cymro vascular sheath. A 0.018 guidewire was then advanced over a vertebral catheter and manipulated through the occluded bypass graft. The V 18 guidewire was advanced into the Omni flush catheter and used to guide the Omni flush catheter more distally into the bypass graft. The V 18 wire was then proximal lysed and advanced through the Omni flush catheter across the gluteal bypass graft. The Omni flush catheter was exchanged for a vertebral catheter and together the catheter and guidewire were advanced to the SFA. Angiography was performed which demons trates thrombus filling the SFA, common formal artery, profundus, popliteal artery area the vertebral catheter was advanced to the tibioperoneal trunk. Angiography was performed which demonstrates patent although underfilled tibial arteries. The V 18 guidewire was exchanged for a 0.035 guidewire. The 5 Cymro sheath in the left groin was then exchanged for a 6 Cymro 45 cm sheath. The tip sheath was advanced to just proximal to the occlusion in the right common iliac artery. Pulse spray AngioJet was then performed from the tibial vessels to the sheath. Following a dwell time of 15 minutes, mechanical thrombectomy using the AngioJet was performed from the tibial vessels to the sheath insertion site. Post AngioJet imaging demonstrated near complete resolution of the thrombus however, there is an 80-90% stenosis at the proximal anastomosis of the common iliac artery to common femoral artery bypass graft. Additionally, there is 80-90% stenosis in the distal SFA and 40-50% stenosis in the popliteal artery. The 5 Cymro sheath in the right groin was exchanged for a 7 Cymro sheath. A 10 mm Icast balloon expandable covered stent was then advanced across the lesion and deployed. Posttreatment imaging demonstrated reduction of the stenosis to less than 10% and brisk flow. A 5 mm x 100 mm nitinol stent was then advanced through the left sheath and deployed in the distal left SFA. The stent was seated using a 4 mm balloon. Post an appointment imaging demonstrated reduction of the SFA stenosis to less than 10%. There is brisk in-line flow to the foot to the anterior tibial artery with an intact pedal arch and retrograde filling of the posterior tibial artery. Following angiography of the puncture sites, the puncture sites were closed using 6 and changes feel arterial closure devices. Compression dressings were then applied. The patient tolerated the procedure well. There were no immediate post procedure complications. Conscious sedation was performed another guidance of radiologic nursing. Continuous cardiopulmonary monitoring was utilized. Impression: 1) Right lower examination angiography with catheter placed in the right common femoral artery, right superficial femoral artery, right profundus and right tibioperoneal trunk demonstrating thrombus extending from the tibioperoneal trunk to the common iliac artery and involving all named vessels. The tibial vessels are underfilled secondary to absent arterial inflow. 2) Thrombectomy using AngioJet chemical thrombectomy device and pulse spray. 3) Additional angiography demonstrating an 80-90% proximal anastomotic stenosis which was treated using balloon expandable covered stent in the common iliac artery. Additional angiography demonstrating an 80-90% stenosis in the distal SFA which was treated using at nitinol stent and angioplasty.4) At the conclusion of the procedure, the patient had in-line flow to the foot and a palpable anterior tibial artery and dopplerable posterior tibial artery. The patient was returned to her room with scheduled fasciotomies to occur this evening.
[2019-05-05] MEDS: PERCOCET 5/325 PO PRN (20:30)
[2019-05-05] MEDS ORDERED: SUBLIMAZE ONE (20:34)
[2019-05-05] MEDS ORDERED: ZEMURON IV ONE (20:34)
[2019-05-05] MEDS ORDERED: XYLOCAINE MPF 2% ONE (20:34)
[2019-05-05] MEDS ORDERED: DIPRIVAN 10 MG/ML IV ONE (20:34)
--- NOTE | 2019-05-05 20:56 | Event Note ---
Date: 05/05/19 After revascularization, patient with obvious right leg compartment syndrome. Needs urgent right leg 4 compartment fasciotomy. Discussed the R/B/A with the patient and her daughter and nieces who expressed understanding. Explained that there is a high risk of requiring amputation as a result of her ischemia however that would not be performed tonight. Also after reviewing the patient's lab and CTA. The findings of the pseudoaneurysm with leukocytosis are concerning for infection. I will order blood cultures to evaluate. If she has positive blood culture and infection was the cause of her pseudoaneurysm, she will require explantation of her graft. Discussed this with the daughter and cultures have been ordered.
[2019-05-05] MEDS ORDERED: LOPRESSOR IV ONE (21:27)
[2019-05-05] MEDS ORDERED: ANCEF ONE (21:29)
[2019-05-05] MEDS ORDERED: CLEOCIN 600 MG/50 mL 600 MG/50 ML BAG IV ONE (21:33)
[2019-05-05] MEDS ORDERED: NEO SYNEPHRINE ONE (21:49)
--- NOTE | 2019-05-05 22:10 | Operative Report ---
Operative Report Operative Report: Date of Procedure: 05/05/2019 Pre-operative Diagnosis: Right Lower Extremity Compartment Syndrome Status Post Revascularization Post-operative Diagnosis: Same Procedure(s): 1. Right Leg 4 Compartment Fasciotomy Surgeon: Jeffrey Lerma M.D. Sports Administrator: Eloy Anesthesia: Gen. Endotracheal Anesthesia EBL: Minimal Counts: Correct Complications: None Condition: Stable Findings: The muscle bulged out of all 4 compartments upon opening the fascia. All muscle that was identified appeared nonviable and did not react to stimulation with cautery. Specimen: None Indication: The patient is a 58-year-old female who presented with acute right lower extremity ischemia with a cadaveric leg. She revascularization of the leg performed in the medical laboratory technologist shortly thereafter developed compartment syndrome. She is in need of urgent 4 compartment fasciotomy to evaluate the possible viability as well as preventing rhabdomyolysis and secondary renal failure. Description of Procedure: The patient was brought to the operating room and laid in supine position. After general endotracheal anesthesia was achieved her right leg was prepped and draped in normal sterile fashion. A longitudinal incision was created on the medial aspect of the leg and carried down to the fascia using cautery. Upon identifying the fascia was obvious that the muscle was under significant amount of tension. The fascia was incised with a 10 blade and then incision was carried cranially and caudally using curved Mayos. Upon opening the fascia the muscle bulged out of the fascia. The soleus was taken down off of the tibia to decompress the deep posterior compartment. The muscle of the posterior compartment was explored and multiple areas were stimulated with the cautery and no area reacted indicating that all muscle and the posterior compartment was nonviable. I then made a longitudinal incision on the lateral aspect of the leg and carried this down to the fascia using cautery. Again the muscle was under a significant amount of tension. I identified the septae that divides the anterior lateral compartment and then incised the fascia of the anterior compartment with a 10 blade and continued the incision both cranially and caudally using curved Mayos. I did the same with the lateral compartment. The muscle bulged out of both compartments. I explored the muscle and related the muscle with cautery and again the muscle did not react indicating that the muscle was not viable. I irrigated the wounds with saline and then achieved hemostasis with cautery. Once hemostasis was achieved and packed both wounds with Kerlix and then dressed it with ABD pads held in place with a loosely wrapp ed Kerlix and then a 4 inch Chris bandage. The patient tolerated the procedure well. All sponge, needle, and instrument counts were correct. The patient was taken to the recovery area in stable condition.
[2019-05-05] MEDS ORDERED: APRESOLINE ONE (22:11)
[2019-05-05] MEDS ORDERED: APRESOLINE IV ONE (22:20)
[2019-05-05] MEDS: DILAUDID IV PRN (23:37)
[2019-05-06 05:35] LABS: Basophils % (Auto) 0.1 % (0.0-1.8); Hematocrit 39.7 % (30.3-42.9); Hemoglobin 13.3 gm/dl (10.1-14.3); Lymphocytes # (Auto) 1.6 K/mm3 (1.2-5.4); Lymphocytes % (Auto) 8.5 % (13.4-35.0); Mean Corpuscular HGB Conc 34 % (30-34); Mean Corpuscular Volume 87 fl (79-97); Monocytes # (Auto) 1.4 K/mm3 (0.0-0.8); Monocytes % (Auto) 7.2 % (0.0-7.3); Platelet Count 239 K/mm3 (140-440); Red Blood Count 4.54 M/mm3 (3.65-5.03); Red Cell Distribution Width 16.8 % (13.2-15.2)
[2019-05-06 05:58] LABS: Alanine Aminotransferase 210 units/L (7-56); Albumin 3.7 g/dL (3.9-5); BUN/Creatinine Ratio 21; Blood Urea Nitrogen 23 mg/dL (7-17); Calcium 8.5 mg/dL (8.4-10.2); Hemolysis Index 69
[2019-05-06] MEDS: ZOFRAN IV PRN ×2 (06:29→12:39)
--- NOTE | 2019-05-06 08:16 | Progress Note ---
Assessment and Plan Assessment and plan: Patient 58 yo with hypertension, hyperlipidemia, PVD s/p multiple Bypass surgery, Nicotine Dependence, presents to ED for evaluation. Pt states that she has experienced pain in right leg over the past 3 hours with progressively worsening pain over the same time frame. Pt states that her leg "feels cold". EMS notified and upon arrival the patient was found to be in distress, and transported to [facility]. Pt seen and evaluated in ED and found to have acute right lower ext ischemia, SIRS. Vascular surgery team notified in ED, and patient taken urgently to OR and had thrombectomy, angioplasy, stent placement and revascularization . Later in evening was taken to OR and had 4 compartment fasciotomy for compartment leg syndrome. Acute ischemia right lower extremiity s/p right lower extremity thrombectomy, angioplasty, stent placement ,revascularization Cont Heparin drip Right foot and toes no movement, no sensation. may need amputation as per vasc surg Right lower extremity compartment syndrome Status post right leg [address] Lerma Peripheral artery disease s/p multiple vasc bypass procedures Leukocytosis ID Physician consulted Blood cultures drawn Hypertension Monitor BP Elevated LFT Repeat LFt in am Hep C Ab pos Hyperlipidemia Nicotine dependence Full CODE STATUS History Interval history: Patient with acute ischemia right leg s/p revascularization, fasciotomy cannot move toes or flex right fot Hospitalist Physical - Physical exam Narrative exam: Gen: Not in acute distress, lying in bed, obese HEENT: Normocephalic, atraumatic Neck: supple, no JVD Heart: S1 and S2 reg, no murmurs, rubs or gallop Lungs: Clear, no crackles, no wheeze Abd: soft, non tender, non distended, normal BS, Ext: Right leg covered with dressing, cannot move right foot or toes right foot, no senssation right foot. Neuro: Awake, alert, oriented X 3, no focal neurological signs - Constitutional Vitals: Temp Pulse Resp BP Pulse Ox 98.9 F 116 H 23 118/82 96 05/06/19 03:47 05/06/19 04:11 05/06/19 04:11 05/06/19 04:11 05/06/19 04:11 Results - Labs CBC & Chem 7: 05/06/19 04:17 05/06/19 04:17 Labs: Laboratory Last Values WBC 18.8 K/mm3 (4.5-11.0) H 05/06/19 04:17 RBC 4.54 M/mm3 (3.65-5.03) 05/06/19 04:17 Hgb 13.3 gm/dl (10.1-14.3) 05/06/19 04:17 Hct 39.7 % (30.3-42.9) 05/06/19 04:17 MCV 87 fl (79-97) 05/06/19 04:17 MCH 29 pg (28-32) 05/06/19 04:17 MCHC 34 % (30-34) 05/06/19 04:17 RDW 16.8 % (13.2-15.2) H 05/06/19 04:17 Plt Count 239 K/mm3 (140-440) 05/06/19 04:17 Lymph % (Auto) 8.5 % (13.4-35.0) L 05/06/19 04:17 [place] % (Auto) 7.2 % (0.0-7.3) 05/06/19 04:17 Eos % (Auto) 0.0 % (0.0-4.3) 05/06/19 04:17 Baso % (Auto) 0.1 % (0.0-1.8) 05/06/19 04:17 Lymph # 1.6 K/mm3 (1.2-5.4) 05/06/19 04:17 [place] # 1.4 K/mm3 (0.0-0.8) H 05/06/19 04:17 Eos # 0.0 K/mm3 (0.0-0.4) 05/06/19 04:17 Baso # 0.0 K/mm3 (0.0-0.1) 05/06/19 04:17 Add Manual Diff Complete 05/05/19 09:10 Total Counted 100 05/05/19 09:10 Seg Neutrophils % 84.2 % (40.0-70.0) H 05/06/19 04:17 Seg Neuts % (Manual) 73.0 % (40.0-70.0) H 05/05/19 09:10 0 % 05/05/19 09:10 24.0 % (13.4-35.0) 05/05/19 09:10 Reactive Lymphs % (Man) 0 % 05/05/19 09:10 3.0 % (0.0-7.3) 05/05/19 09:10 0 % (0.0-4.3) 05/05/19 09:10 0 % (0.0-1.8) 05/05/19 09:10 0 % 05/05/19 09:10 0 % 05/05/19 09:10 0 % 05/05/19 09:10 0 % 05/05/19 09:10 Nucleated RBC % Not Reportable 05/05/19 09:10 Seg Neutrophils # 15.8 K/mm3 (1.8-7.7) H 05/06/19 04:17 Seg Neutrophils # Man 14.4 K/mm3 (1.8-7.7) H 05/05/19 09:10 Band Neutrophils # 0.0 K/mm3 05/05/19 09:10 4.7 K/mm3 (1.2-5.4) 05/05/19 09:10 Abs React Lymphs (Man) 0.0 K/mm3 05/05/19 09:10 0.6 K/mm3 (0.0-0.8) 05/05/19 09:10 0.0 K/mm3 (0.0-0.4) 05/05/19 09:10 0.0 K/mm3 (0.0-0.1) 05/05/19 09:10 0.0 K/mm3 05/05/19 09:10 0.0 K/mm3 05/05/19 09:10 0.0 K/mm3 05/05/19 09:10 Blast Cells # 0.0 K/mm3 05/05/19 09:10 WBC Morphology Not Reportable 05/05/19 09:10 Hypersegmented Neuts Not Reportable 05/05/19 09:10 Hyposegmented Neuts Not Reportable 05/05/19 09:10 Hypogranular Neuts Not Reportable 05/05/19 09:10 Not Reportable 05/05/19 09:10 Not Reportable 05/05/19 09:10 Not Reportable 05/05/19 09:10 Not Reportable 05/05/19 09:10 Not Reportable 05/05/19 09:10 Not Reportable 05/05/19 09:10 Consistent w auto 05/05/19 09:10 Not Reportable 05/05/19 09:10 Plt Clumps, EDTA Not Reportable 05/05/19 09:10 Not Reportable 05/05/19 09:10 Not Reportable 05/05/19 09:10 Not Reportable 05/05/19 09:10 Plt Morphology Comment Not Reportable 05/05/19 09:10 RBC Morphology Normal 05/05/19 09:10 Dimorphic RBCs Not Reportable 05/05/19 09:10 Not Reportable 05/05/19 09:10 Not Reportable 05/05/19 09:10 Not Reportable 05/05/19 09:10 Not Reportable 05/05/19 09:10 Not Reportable 05/05/19 09:10 Not Reportable 05/05/19 09:10 Not Reportable 05/05/19 09:10 Not Reportable 05/05/19 09:10 Not Reportable 05/05/19 09:10 Not Reportable 05/05/19 09:10 Not Reportable 05/05/19 09:10 Not Reportable 05/05/19 09:10 Not Reportable 05/05/19 09:10 Not Reportable 05/05/19 09:10 Not Reportable 05/05/19 09:10 Not Reportable 05/05/19 09:10 Not Reportable 05/05/19 09:10 Not Reportable 05/05/19 09:10 Not Reportable 05/05/19 09:10 Acanthocytes (Spur) Not Reportable 05/05/19 09:10 Rouleaux Not Reportable 05/05/19 09:10 Not Reportable 05/05/19 09:10 Not Reportable 05/05/19 09:10 Not Reportable 05/05/19 09:10 Not Reportable 05/05/19 09:10 Hem Pathologist Commnt No 05/05/19 09:10 PT 13.3 Sec. (12.2-14.9) 05/05/19 15:05 INR 1.04 (0.87-1.13) 05/05/19 15:05 APTT 26.0 Sec. (24.2-36.6) 05/05/19 15:05 Heparin Anti-Xa Level 0.50 U.I./ml (0.3-0.7) 05/06/19 04:17 Sodium 138 mmol/L (137-145) 05/06/19 04:17 Potassium 4.4 mmol/L (3.6-5.0) 05/06/19 04:17 Chloride 99.7 mmol/L (98-107) 05/06/19 04:17 Carbon Dioxide 21 mmol/L (22-30) L 05/06/19 04:17 22 mmol/L 05/06/19 04:17 BUN 23 mg/dL (7-17) H 05/06/19 04:17 1.1 mg/dL (0.7-1.2) 05/06/19 04:17 Estimated GFR > 60 ml/min 05/06/19 04:17 21 % 05/06/19 04:17 Glucose 229 mg/dL (65-100) H 05/06/19 04:17 Calcium 8.5 mg/dL (8.4-10.2) 05/06/19 04:17 1.00 mg/dL (0.1-1.2) 05/06/19 04:17 AST 649 units/L (5-40) H 05/06/19 04:17 ALT 210 units/L (7-56) H 05/06/19 04:17 95 units/L (35-129) 05/06/19 04:17 7.0 g/dL (6.3-8.2) 05/06/19 04:17 3.7 g/dL (3.9-5) L 05/06/19 04:17 1.1 % 05/06/19 04:17 Plasma/Serum Alcohol < 0.01 % (0-0.07) 05/05/19 19:36 Active Medications - Current Medications Current Medications: Generic Name Dose Route Start Last Admin Trade Name Freq PRN Reason Stop Dose Admin Hydromorphone HCl 1 mg 05/05/19 23:10 05/05/19 23:37 Dilaudid IV 1 mg Q4H PRN Administration Pain , Severe (7-10) Heparin Sodium/Sodium Chloride 25,000 unit in 500 mls @ 26 mls/hr 05/05/19 16:00 05/06/19 06:09 Heparin/ 0.45% Nacl-25,000 Unit/500 Ml IV 1,300 units/hr TITR MIHAI 26 mls/hr Titration Protocol 1,300 UNITS/HR Vancomycin HCl 1,750 mg/ 535 mls @ 267.5 mls/hr 05/05/19 18:15 05/05/19 23:14 Sodium Chloride IV 267.5 mls/hr Q24H MIHAI Administration Morphine Sulfate 2 mg 05/05/19 23:10 Morphine IV Q4H PRN Pain, Moderate (4-6) Ondansetron HCl 4 mg 05/06/19 06:17 05/06/19 06:29 Zofran IV 4 mg Q6H PRN Administration Nausea And Vomiting Oxycodone/Acetaminophen 1 tab 05/05/19 16:59 05/05/19 20:30 Percocet 5/325 PO 1 tab Q6H PRN Administration Pain, Moderate (4-6) Sodium Chloride 10 ml 05/05/19 22:00 Sodium Chloride Flush Syringe 10 Ml IV BID MIHAI Sodium Chloride 10 ml 05/05/19 16:59 Sodium Chloride Flush Syringe 10 Ml IV PRN PRN LINE FLUSH
[2019-05-06] MEDS: PERCOCET 5/325 PO PRN (08:51)
--- NOTE | 2019-05-06 10:05 | Consultation ---
History of Present Illness - Reason for Consult Consult date: 05/06/19 leukocytosis sepsis right leg Requesting physician: ARIANE HERRERA - History of Present Illness 58 y/o female with history of smoking abuse, hypertension and peripheral vascular disease s/p multiple prior revascularization with stent placement at [facility], admitted on 05/05/2019 due to severe acute onset right lef pain and cold sensation as well as decreased foot sensation and strength started on 05/03/2019. Denies any previous foot ulcers or wounds. Denies fever, chills, N/V/D. Denies resp or urinary symptoms. In the ED, temp 98.5, HR 107, R 17, BP 213/100. WBC 19.7. Creat 1.1. Blood culture 05/05/2019 no growth today. 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 Patient was taken to the OR on 05/05/2019 for acute right limb ischemia with motor loss and sensation loss to her foot and toes. She underwent a revascularization procedure and thrombectomy of her right lower extremity and covered stent placement, she was then taken back to the OR for right leg 4 compartment fasciotomy due to compartment syndrome status post revascularization. ID consulted for management of leukocytosis. Review of Systems: General: no fever, chills, no malaise Cutaneous: no rash, pruritus Head: no headaches or injury Eyes: no changes in vision, eye pain, double vision Ears: no ear pain, ear discharge, ringing or hearing loss Nose: no nose bleeding, stuffiness Mouth & throat: no bleeding gums, no horseness, no dental problems, or swollen glands Neck: no pain, node enlargement/lumps, tyroid enlargement or tenderness Respiratory: no SOB, no cough, no JIN, wheezing, sputum, hemoptysis, pleuritic chest pain Cardiovascular: no chest pain, leg edema, cyanosis, JIN, orthopnea Musculoskeletal: + right leg severe pain, edema, decrease sensation and ROM Gastrointestinal: no nausea, no vomiting, no hematemesis, diarrhea, constipation, melena, bright red blood in stools, fecal incontinence, jaundice Genitourinary/Reproductive: no frequent urination, dysuria, hematuria, incontinence Neurogical: no seizures, no headaches, no weakness, no paresthesias, no loss of speech or vision; no memory loss, no vertigo, no tremors, no numbness Psychiatric: stable mood; no excessive anxiety, sadness or moodiness Past History Past Medical History: hypertension, hyperlipidemia, PVD Past Surgical History: Other (Vascular surgery) Social history: single, smoking Family history: diabetes, hypertension Medications and Allergies Allergies Allergy/AdvReac Type Severity Reaction Status Date / Time aspirin Allergy Unknown Verified 05/05/19 15:05 lisinopril Allergy Angioedema Verified 05/05/19 15:05 Penicillins Allergy Swelling Verified 05/05/19 15:05 tramadol Allergy Itching Verified 05/05/19 15:05 Home Medications Medication Instructions Recorded Confirmed Last Taken Type Acetaminophen [Mapap] 1,000 mg PO QID PRN #60 capsule 03/19/19 Unknown Rx Cyclobenzaprine [Flexeril] 10 mg PO TID PRN #30 tablet 03/19/19 Unknown Rx Diclofenac 1% [Diclofenac 1% 1 applicatio TP QID PRN #1 tube 03/19/19 Unknown Rx topical gel] Active Meds: Active Medications Hydromorphone HCl (Dilaudid) 1 mg IV Q4H PRN PRN Reason: Pain , Severe (7-10) Last Admin: 05/05/19 23:37 Dose: 1 mg Documented by: Heparin Sodium/Sodium Chloride (Heparin/ 0.45% Nacl-25,000 Unit/500 Ml) 25,000 unit in 500 mls @ 26 mls/hr IV TITR MIHAI; Protocol Last Titration: 05/06/19 06:09 Dose: 1,300 units/hr, 26 mls/hr Documented by: Vancomycin HCl 1,750 mg/ (Sodium Chloride) 535 mls @ 267.5 mls/hr IV Q24H MIHAI Last Admin: 05/05/19 23:14 Dose: 267.5 mls/hr Documented by: Morphine Sulfate (Morphine) 2 mg IV Q4H PRN PRN Reason: Pain, Moderate (4-6) Ondansetron HCl (Zofran) 4 mg IV Q6H PRN PRN Reason: Nausea And Vomiting Last Admin: 05/06/19 06:29 Dose: 4 mg Documented by: Oxycodone/Acetaminophen (Percocet 5/325) 1 tab PO Q6H PRN PRN Reason: Pain, Moderate (4-6) Last Admin: 05/06/19 08:51 Dose: 1 tab Documented by: Sodium Chloride (Sodium Chloride Flush Syringe 10 Ml) 10 ml IV BID MIHAI Sodium Chloride (Sodium Chloride Flush Syringe 10 Ml) 10 ml IV PRN PRN PRN Reason: LINE FLUSH Physical Examination - Physical Exam Narrative exam: General appearance: Alert in NAD Eyes: anicteric sclerae, moist conjunctivae; no lid-lag; PERRLA HENT: Atraumatic; oropharynx clear with moist mucous membranes and no mucosal ulcerations/no oral thrush; normal hard and soft palate. Lungs: CTA, with normal respiratory effort and no intercostal retractions CV: RRR no murmur Abdomen: Soft, non-tender; no masses or hepatosplenomegaly Extremities: +right leg marked edema covered with surgical dressings. Skin: No rash. Psych: Appropriate affect, alert and oriented to person, place and time. Neuro: alert and oriented x 3. +decreased sensation and strength in right toes/foot - Constitutional Vitals: Vital Signs Temp Pulse Resp BP Pulse Ox 98.4 F 117 H 13 139/92 97 05/06/19 08:00 05/06/19 08:11 05/06/19 08:11 05/06/19 08:11 05/06/19 08:46 Temperature -Last 24 Hours Temperature 98.4 F Temperature 98.9 F Temperature 99.2 F Temperature 97.6 F Temperature 98.0 F Temperature 99 F Temperature 97.6 F Results - Labs CBC & Chem 7: 05/06/19 04:17 05/06/19 04:17 Labs: Abnormal lab results 05/05/19 05/05/19 05/06/19 Range/Units 09:10 09:10 04:17 WBC 19.7 H 18.8 H (4.5-11.0) K/mm3 Hgb 14.5 H (10.1-14.3) gm/dl Hct 43.8 H (30.3-42.9) % RDW 16.8 H 16.8 H (13.2-15.2) % Lymph % (Auto) 8.5 L (13.4-35.0) % [place] # 1.4 H (0.0-0.8) K/mm3 Seg Neutrophils % 84.2 H (40.0-70.0) % Seg Neuts % (Manual) 73.0 H (40.0-70.0) % Seg Neutrophils # 15.8 H (1.8-7.7) K/mm3 Seg Neutrophils # Man 14.4 H (1.8-7.7) K/mm3 Carbon Dioxide (22-30) mmol/L BUN 25 H (7-17) mg/dL Glucose 137 H (65-100) mg/dL AST 204 H (5-40) units/L ALT 101 H (7-56) units/L Total Protein 8.3 H (6.3-8.2) g/dL Albumin (3.9-5) g/dL 05/06/19 Range/Units 04:17 WBC (4.5-11.0) K/mm3 Hgb (10.1-14.3) gm/dl Hct (30.3-42.9) % RDW (13.2-15.2) % Lymph % (Auto) (13.4-35.0) % [place] # (0.0-0.8) K/mm3 Seg Neutrophils % (40.0-70.0) % Seg Neuts % (Manual) (40.0-70.0) % Seg Neutrophils # (1.8-7.7) K/mm3 Seg Neutrophils # Man (1.8-7.7) K/mm3 Carbon Dioxide 21 L (22-30) mmol/L BUN 23 H (7-17) mg/dL Glucose 229 H (65-100) mg/dL AST 649 H (5-40) units/L ALT 210 H (7-56) units/L Total Protein (6.3-8.2) g/dL Albumin 3.7 L (3.9-5) g/dL Assessment and Plan Cultures: Blood culture 05/05/2019 no growth so far Assessment: 58 y/o female with history of smoking abuse, hypertension and peripheral vascular disease s/p multiple prior revascularization with stent placement at [facility], admitted on 05/05/2019 due to severe acute onset right lef pain and cold sensation as well as decreased foot sensation and strength started on 05/03/2019: 1) SIRS: present on admission with leukocytosis, tachycardia, likely due to acute right limb ischemia +/- right limb compartment syndrome. Blood culture so far negative. Patient has no respiratory or urinary symptoms. No recent foot wound or ulcers. 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 Patient was taken to the OR on 05/05/2019 for acute right limb ischemia with motor loss and sensation loss to her foot and toes. She underwent a revascularization procedure and thrombectomy of her right lower extremity and covered stent placement, she was then taken back to the OR same day for right leg 4 compartment fasciotomy due to compartment syndrome status post revascularization. 3) Hypertensive urgency 4) Elevated LFTs: ? unclear source Recommendations: follow up blood cultures obtain UA/urine culture and CXR continue vancomycin IV for now, will stop soon in blood culture negative for 48h patient at risk for limb amputation check liver US and viral hepatitis panel Will follow. Kailyn Courtney MD Infectious Diseases [employer] [facility] ([facility]) M [phone] O [phone]
[2019-05-06] MEDS: SODIUM CHLORIDE FLUSH SYRINGE 10 ML IV SCH ×2 (10:27→23:10)
[2019-05-06] MEDS: HEPARIN/ 0.45% NACL-25,000 UNIT/500 ML 25,000 UNIT/500 ML BAG IV SCH (12:39)
[2019-05-06] MEDS: MORPHINE IV PRN ×2 (12:46→16:55)
[2019-05-06 14:42] LABS: Hepatitis C Virus Antibody Reactive (NonReactive)
[2019-05-06 15:04] LABS: Hepatitis B Surface Antigen Non-Reactive (Negative)
--- NOTE | 2019-05-06 16:52 | XRay Report ---
CHEST 1 VIEW INDICATION / CLINICAL INFORMATION: Cough. COMPARISON: None available. FINDINGS: SUPPORT DEVICES: None. HEART / MEDIASTINUM: No significant abnormality. LUNGS / PLEURA: Subtle left lower lung pneumonia. The right lung is clear. Signer Name: Steve Vivas MD Signed: 05/06/2019 4:48 PM Workstation Name: [id number]
--- NOTE | 2019-05-06 16:52 | Progress Note ---
Assessment and Plan 58-year-old female with occlusion of the right lower extremity arterial system with iliofemoral bypass with iliac small pseudoaneurysm. Patient had occlusion for greater than 48 hours prior to presenting with a cadaveric right lower extre mity. The right foot has no motor or sensory function and no longer has pulses or Doppler signals. It is not salvageable. Arterial Doppler ordered. Family is aware and understands. Iliac pseudoaneurysm differential includes mycotic versus technical issues/clamp injury during anastomotic creation. Blood cultures pending. Ultimate plan will be for right below-knee amputation or above-knee amputation depending on arterial Doppler status, and tissue status. Unfortunately, permanent neurologic and muscle changes occur after 6 hrs and patient presented after 24 hrs. Over the next few days this can be determined. I'm hoping that a below-knee amputation can be performed. It is possible this could require another revascularization procedure prior to below-knee amputation. Subjective Date of service: 05/06/19 Interval history: Nonpalpable or dopplerable right pedal pulses. Left pedal pulses are strongly dopplerable. Right lower extremity is still warm. She has no motor function or sensory function of the right foot. She had palpable pulses of the right lower extremity after her fasciotomies yesterday. She can move her right knee, but this was limited due to pain. She has sensation to the mid calf. Objective - Constitutional Vitals: Vital Signs - 12hr 05/06/19 05/06/19 05/06/19 04:51 05:01 05:11 Temperature Pulse Rate 114 H 125 H 119 H Respiratory 22 19 19 Rate Blood Pressure 141/85 120/97 120/97 O2 Sat by Pulse 95 77 L 97 Oximetry 05/06/19 05/06/19 05/06/19 05:21 05:30 05:41 Temperature Pulse Rate 116 H 116 H 115 H Respiratory 22 25 H 27 H Rate Blood Pressure 120/97 118/84 118/84 O2 Sat by Pulse 95 97 96 Oximetry 05/06/19 05/06/19 05/06/19 05:51 06:00 06:11 Temperature Pulse Rate 115 H 120 H 112 H Respiratory 23 28 H 20 Rate Blood Pressure 118/84 105/81 105/81 O2 Sat by Pulse 96 79 L 96 Oximetry 05/06/19 05/06/19 05/06/19 06:21 06:30 06:41 Temperature Pulse Rate 119 H 117 H 115 H Respiratory 19 15 21 Rate Blood Pressure 105/81 94/47 94/47 O2 Sat by Pulse 100 97 Oximetry 05/06/19 05/06/19 05/06/19 06:51 07:00 07:11 Temperature Pulse Rate 113 H 113 H 122 H Respiratory 22 23 27 H Rate Blood Pressure 94/47 130/79 130/79 O2 Sat by Pulse 98 97 69 L Oximetry 05/06/19 05/06/19 05/06/19 07:21 07:30 07:41 Temperature Pulse Rate 111 H 112 H 111 H Respiratory 20 25 H 14 Rate Blood Pressure 130/79 141/98 141/98 O2 Sat by Pulse 99 98 98 Oximetry 05/06/19 05/06/19 05/06/19 07:51 08:00 08:11 Temperature 98.4 F Pulse Rate 111 H 112 H 117 H Respiratory 24 17 13 Rate Blood Pressure 141/98 139/92 139/92 O2 Sat by Pulse 96 97 94 Oximetry 05/06/19 05/06/19 05/06/19 08:21 08:31 08:41 Temperature Pulse Rate 111 H 130 H 120 H Respiratory 17 22 20 Rate Blood Pressure 139/92 139/92 108/78 O2 Sat by Pulse 96 98 Oximetry 05/06/19 05/06/19 05/06/19 08:46 08:51 09:00 Temperature Pulse Rate 121 H 116 H Respiratory 26 H 22 Rate Blood Pressure 108/78 129/72 O2 Sat by Pulse 97 98 98 Oximetry 05/06/19 05/06/19 05/06/19 09:11 09:21 09:30 Temperature Pulse Rate 112 H 111 H 113 H Respiratory 15 26 H 27 H Rate Blood Pressure 129/72 129/72 114/67 O2 Sat by Pulse 90 94 94 Oximetry 05/06/19 05/06/19 05/06/19 09:41 09:51 10:00 Temperature Pulse Rate 112 H 110 H 122 H Respiratory 28 H 26 H Rate Blood Pressure 114/67 114/67 O2 Sat by Pulse 93 98 Oximetry 05/06/19 05/06/19 05/06/19 10:01 10:11 10:21 Temperature Pulse Rate 122 H 110 H 111 H Respiratory 29 H 24 24 Rate Blood Pressure 92/75 92/75 92/75 O2 Sat by Pulse 99 99 Oximetry 05/06/19 05/06/19 05/06/19 10:30 10:41 10:51 Temperature Pulse Rate 111 H 110 H 112 H Respiratory 25 H 24 25 H Rate Blood Pressure 108/59 108/59 108/59 O2 Sat by Pulse 98 98 99 Oximetry 05/06/19 05/06/19 05/06/19 11:01 11:11 11:21 Temperature Pulse Rate 111 H 112 H 116 H Respiratory 11 L 32 H 20 Rate Blood Pressure 140/119 140/119 140/119 O2 Sat by Pulse 98 97 98 Oximetry 05/06/19 05/06/19 05/06/19 11:31 11:41 11:51 Temperature Pulse Rate 123 H 113 H 112 H Respiratory 23 19 22 Rate Blood Pressure 97/62 97/62 97/62 O2 Sat by Pulse 95 98 Oximetry 05/06/19 05/06/19 05/06/19 12:00 12:01 12:11 Temperature 98.3 F Pulse Rate 117 H 112 H Respiratory 20 25 H 20 Rate Blood Pressure 97/62 110/71 O2 Sat by Pulse 100 98 99 Oximetry 05/06/19 05/06/19 05/06/19 12:21 12:30 12:40 Temperature Pulse Rate 111 H 116 H 113 H Respiratory 29 H 24 15 Rate Blood Pressure 110/71 110/71 125/80 O2 Sat by Pulse 100 93 Oximetry 05/06/19 05/06/19 05/06/19 12:50 13:00 13:10 Temperature Pulse Rate 111 H 111 H 111 H Respiratory 17 24 29 H Rate Blood Pressure 125/80 124/76 110/71 O2 Sat by Pulse 96 96 97 Oximetry 05/06/19 05/06/19 05/06/19 13:20 13:30 13:40 Temperature Pulse Rate 113 H 113 H 115 H Respiratory 24 27 H 25 H Rate Blood Pressure 110/71 133/82 133/82 O2 Sat by Pulse 97 96 98 Oximetry 05/06/19 05/06/19 05/06/19 13:50 14:00 14:10 Temperature Pulse Rate 115 H 112 H 114 H Respiratory 15 24 22 Rate Blood Pressure 133/82 132/83 132/83 O2 Sat by Pulse 85 97 97 Oximetry 05/06/19 05/06/19 05/06/19 14:20 14:30 14:40 Temperature Pulse Rate 112 H 112 H 114 H Respiratory 27 H 20 20 Rate Blood Pressure 132/83 140/86 O2 Sat by Pulse 97 95 98 Oximetry 05/06/19 05/06/19 05/06/19 14:50 15:00 15:10 Temperature Pulse Rate 112 H 120 H 116 H Respiratory 24 23 16 Rate Blood Pressure 140/86 140/92 140/92 O2 Sat by Pulse 97 97 99 Oximetry General appearance: Present: mild distress (from fasciotomy incisions) - EENT Eyes: EOM intact ENT: hearing intact - Respiratory Respiratory effort: normal Extremities: abnormal (see subjective) - Psychiatric Psychiatric: appropriate mood/affect, cooperative - Labs CBC & Chem 7: 05/06/19 04:17 05/06/19 04:17 Labs: Abnormal lab results 05/06/19 05/06/19 05/06/19 Range/Units 04:17 04:17 13:39 WBC 18.8 H (4.5-11.0) K/mm3 RDW 16.8 H (13.2-15.2) % Lymph % (Auto) 8.5 L (13.4-35.0) % [place] # 1.4 H (0.0-0.8) K/mm3 Seg Neutrophils % 84.2 H (40.0-70.0) % Seg Neutrophils # 15.8 H (1.8-7.7) K/mm3 Carbon Dioxide 21 L (22-30) mmol/L BUN 23 H (7-17) mg/dL Glucose 229 H (65-100) mg/dL AST 649 H (5-40) units/L ALT 210 H (7-56) units/L Albumin 3.7 L (3.9-5) g/dL Hepatitis C Antibody Reactive A (NonReactive) Medications & Allergies - Medications Allergies/Adverse Reactions: Allergies aspirin Allergy (Verified 05/05/19 15:05) Unknown lisinopril Allergy (Verified 05/05/19 15:05) Angioedema Penicillins Allergy (Verified 05/05/19 15:05) Swelling tramadol Allergy (Verified 05/05/19 15:05) Itching Home Medications: Home Medications Medication Instructions Recorded Confirmed Last Taken Type Acetaminophen [Mapap] 1,000 mg PO QID PRN #60 capsule 03/19/19 Unknown Rx Cyclobenzaprine [Flexeril] 10 mg PO TID PRN #30 tablet 03/19/19 Unknown Rx Diclofenac 1% [Diclofenac 1% 1 applicatio TP QID PRN #1 tube 03/19/19 Unknown Rx topical gel] Active Medications: Generic Name Dose Route Start Last Admin Trade Name Shabana PRN Reason Stop Dose Admin Clopidogrel Bisulfate 75 mg 05/06/19 16:00 Plavix PO QDAY MIHAI Hydromorphone HCl 1 mg 05/05/19 23:10 05/05/19 23:37 Dilaudid IV 1 mg Q4H PRN Administration Pain , Severe (7-10) Heparin Sodium/Sodium Chloride 25,000 unit in 500 mls @ 26 mls/hr 05/05/19 16:00 05/06/19 12:39 Heparin/ 0.45% Nacl-25,000 Unit/500 Ml IV 1,300 units/hr TITR MIHAI 26 mls/hr Administration Protocol 1,300 UNITS/HR Vancomycin HCl 1 gm in 250 mls @ 166.667 mls/hr 05/06/19 16:00 Vancomycin/Ns 1 Gm/250 Ml IV Q12H [facility] Metoclopramide HCl 10 mg 05/06/19 16:32 Reglan IV Q6H PRN Nausea And Vomiting Morphine Sulfate 2 mg 05/05/19 23:10 05/06/19 12:46 Morphine IV 2 mg Q4H PRN Administration Pain, Moderate (4-6) Ondansetron HCl 4 mg 05/06/19 06:17 05/06/19 12:39 Zofran IV 4 mg Q6H PRN Administration Nausea And Vomiting Oxycodone/Acetaminophen 1 tab 05/05/19 16:59 05/06/19 08:51 Percocet 5/325 PO 1 tab Q6H PRN Administration Pain, Moderate (4-6) Pantoprazole Sodium 40 mg 05/06/19 17:00 Protonix PO QDAY MIHAI Sodium Chloride 10 ml 05/05/19 22:00 05/06/19 10:27 Sodium Chloride Flush Syringe 10 Ml IV 10 ml BID MIHAI Administration Sodium Chloride 10 ml 05/05/19 16:59 Sodium Chloride Flush Syringe 10 Ml IV PRN PRN LINE FLUSH
[2019-05-06] MEDS: VANCOMYCIN/NS 1 GM/250 ML 1 GM/250 ML BAG IV SCH (16:54)
[2019-05-06] MEDS: PLAVIX PO SCH (16:55)
[2019-05-06] MEDS: PROTONIX PO SCH (16:56)
[2019-05-06] MEDS: REGLAN IV PRN (17:16)
--- NOTE | 2019-05-06 20:19 | Vascular Lab Report ---
VL arterial duplex LE RT INDICATION / CLINICAL INFORMATION: nonpalpable right pedal pulses, ischemic RLE. COMPARISON: None available. FINDINGS: Monophasic flow is seen in the majority of the vessels of the right lower extremity. Marked edema is seen in the right lower extremity. Very minimal flow is noted in the right distal posterior tibial an d dorsalis pedis arteries IMPRESSION: Monophasic flow is seen in the majority of the arteries of the right lower extremity. Limited examina tion due to marked edema and bandages. Very minimal flow is noted in the right distal posterior tibia l and dorsalis pedis arteries Signer Name: Naif Alonso MD FACR Signed: 05/06/2019 8:15 PM Workstation Name: [id number]
[2019-05-06 21:45] LABS: Amorphous Crystals,Urine 1+; Bilirubin,Urine NEG (Negative); Blood,Urine LG (Negative); Color,Urine Amber (Yellow); Urobilinogen,Urine < 2.0 mg/dL (<2.0)
--- NOTE | 2019-05-06 22:20 | Ultrasound Report ---
US abdomen limited INDICATION / CLINICAL INFORMATION: RUQ US eval liver lesions/cholecystitis. COMPARISON: None available. FINDINGS: The gallbladder is normal without evidence of cholelithiasis. Common bile duct is normal measuring 7 mm. Visualized portions of the liver, right kidney and aorta are normal. IMPRESSION: Negative limited ultrasound Signer Name: Naif Alonso MD FACR Signed: 05/06/2019 10:15 PM Workstation Name: [id number]
[2019-05-06] MEDS: DILAUDID IV PRN (23:08)
[2019-05-07] MEDS: VANCOMYCIN/NS 1 GM/250 ML 1 GM/250 ML BAG IV SCH ×2 (03:46→15:26)
[2019-05-07] MEDS: DILAUDID IV PRN ×3 (04:00→17:55)
[2019-05-07 04:42] LABS: Hematocrit 34.2 % (30.3-42.9); Hemoglobin 11.5 gm/dl (10.1-14.3)
[2019-05-07] MEDS: ZOFRAN IV PRN ×3 (08:52→22:10)
[2019-05-07] MEDS: SODIUM CHLORIDE FLUSH SYRINGE 10 ML IV SCH ×2 (10:31→22:10)
[2019-05-07] MEDS: PLAVIX PO SCH (10:32)
[2019-05-07] MEDS: PROTONIX PO SCH (10:32)
[2019-05-07] MEDS: REGLAN IV PRN ×2 (11:41→17:55)
[2019-05-07] MEDS: HEPARIN/ 0.45% NACL-25,000 UNIT/500 ML 25,000 UNIT/500 ML BAG IV SCH (11:48)
[2019-05-07] MEDS ORDERED: SILVER NITRATE TP ONE (11:55)
[2019-05-07] MEDS ORDERED: DILAUDID IV ONE (12:30)
--- NOTE | 2019-05-07 12:34 | Progress Note ---
Assessment and Plan Assessment and plan: Acute ischemia right lower extremiity Vascular surgery reports ultimate will be for right below-knee amputation or above-knee amputation depending on arterial Doppler status, and tissue status. Cont Heparin drip Right foot and toes no movement, no sensation. may need amputation as per vasc surg Right lower extremity compartment syndrome Status post right leg [address] Lerma. Peripheral artery disease s/p multiple vasc bypass procedures Leukocytosis ID Physician consulted Blood cultures drawn Hypertension Monitor BP Elevated LFT Repeat LFt in am Hep C Ab pos Hyperlipidemia Nicotine dependence Full CODE STATUS History Interval history: Patient 58 yo with hypertension, hyperlipidemia, PVD s/p multiple Bypass surgery, Nicotine Dependence, presents to ED for evaluation. Pt states that she has experienced pain in right leg over the past 3 hours with progressively worsening pain over the same time frame. Pt states that her leg "feels cold". EMS notified and upon arrival the patient was found to be in distress, and tra nsported to [facility]. Pt seen and evaluated in ED and found to have acute right lower ext ischemia, SIRS. Vascular surgery team notified in ED, and patient taken urgently to OR and had thrombectomy, angioplasy, stent placement and revascularization . Later in evening was taken to OR and had 4 compartment fasciotomy for compartment leg syndrome. Hospitalist Physical - Constitutional Vitals: Temp Pulse Resp BP Pulse Ox 97.6 F 115 H 18 175/91 98 05/07/19 12:00 05/07/19 06:50 05/07/19 06:50 05/07/19 06:50 05/07/19 06:50 General appearance: Present: mild distress (from fasciotomy incisions) - EENT Eyes: Present: PERRL, EOM intact ENT: hearing intact, clear oral mucosa, dentition normal - Neck Neck: Present: supple, normal ROM - Respiratory Respiratory effort: normal Respiratory: bilateral: CTA - Cardiovascular Rhythm: regular Heart Sounds: Present: S1 & S2. Absent: gallop, rub - Extremities Extremities: No edema Extremity abnormal: cyanosis (RLE), other (severely decreased ROM RLE) - Abdominal General gastrointestinal: soft, non-tender, non-distended, normal bowel sounds - Integumentary Integumentary: Present: clear, warm, dry - Neurologic Neurologic: CNII-XII intact, moves all extremities Results - Labs CBC & Chem 7: 05/07/19 03:59 05/06/19 04:17 Labs: Laboratory Last Values WBC 18.8 K/mm3 (4.5-11.0) H 05/06/19 04:17 RBC 4.54 M/mm3 (3.65-5.03) 05/06/19 04:17 Hgb 11.5 gm/dl (10.1-14.3) 05/07/19 03:59 Hct 34.2 % (30.3-42.9) 05/07/19 03:59 MCV 87 fl (79-97) 05/06/19 04:17 MCH 29 pg (28-32) 05/06/19 04:17 MCHC 34 % (30-34) 05/06/19 04:17 RDW 16.8 % (13.2-15.2) H 05/06/19 04:17 Plt Count 211 K/mm3 (140-440) 05/07/19 03:59 Lymph % (Auto) 8.5 % (13.4-35.0) L 05/06/19 04:17 [place] % (Auto) 7.2 % (0.0-7.3) 05/06/19 04:17 Eos % (Auto) 0.0 % (0.0-4.3) 05/06/19 04:17 Baso % (Auto) 0.1 % (0.0-1.8) 05/06/19 04:17 Lymph # 1.6 K/mm3 (1.2-5.4) 05/06/19 04:17 [place] # 1.4 K/mm3 (0.0-0.8) H 05/06/19 04:17 Eos # 0.0 K/mm3 (0.0-0.4) 05/06/19 04:17 Baso # 0.0 K/mm3 (0.0-0.1) 05/06/19 04:17 Add Manual Diff Complete 05/05/19 09:10 Total Counted 100 05/05/19 09:10 Seg Neutrophils % 84.2 % (40.0-70.0) H 05/06/19 04:17 Seg Neuts % (Manual) 73.0 % (40.0-70.0) H 05/05/19 09:10 0 % 05/05/19 09:10 24.0 % (13.4-35.0) 05/05/19 09:10 Reactive Lymphs % (Man) 0 % 05/05/19 09:10 3.0 % (0.0-7.3) 05/05/19 09:10 0 % (0.0-4.3) 05/05/19 09:10 0 % (0.0-1.8) 05/05/19 09:10 0 % 05/05/19 09:10 0 % 05/05/19 09:10 0 % 05/05/19 09:10 0 % 05/05/19 09:10 Nucleated RBC % Not Reportable 05/05/19 09:10 Seg Neutrophils # 15.8 K/mm3 (1.8-7.7) H 05/06/19 04:17 Seg Neutrophils # Man 14.4 K/mm3 (1.8-7.7) H 05/05/19 09:10 Band Neutrophils # 0.0 K/mm3 05/05/19 09:10 4.7 K/mm3 (1.2-5.4) 05/05/19 09:10 Abs React Lymphs (Man) 0.0 K/mm3 05/05/19 09:10 0.6 K/mm3 (0.0-0.8) 05/05/19 09:10 0.0 K/mm3 (0.0-0.4) 05/05/19 09:10 0.0 K/mm3 (0.0-0.1) 05/05/19 09:10 0.0 K/mm3 05/05/19 09:10 0.0 K/mm3 05/05/19 09:10 0.0 K/mm3 05/05/19 09:10 Blast Cells # 0.0 K/mm3 05/05/19 09:10 WBC Morphology Not Reportable 05/05/19 09:10 Hypersegmented Neuts Not Reportable 05/05/19 09:10 Hyposegmented Neuts Not Reportable 05/05/19 09:10 Hypogranular Neuts Not Reportable 05/05/19 09:10 Not Reportable 05/05/19 09:10 Not Reportable 05/05/19 09:10 Not Reportable 05/05/19 09:10 Not Reportable 05/05/19 09:10 Not Reportable 05/05/19 09:10 Not Reportable 05/05/19 09:10 Consistent w auto 05/05/19 09:10 Not Reportable 05/05/19 09:10 Plt Clumps, EDTA Not Reportable 05/05/19 09:10 Not Reportable 05/05/19 09:10 Not Reportable 05/05/19 09:10 Not Reportable 05/05/19 09:10 Plt Morphology Comment Not Reportable 05/05/19 09:10 RBC Morphology Normal 05/05/19 09:10 Dimorphic RBCs Not Reportable 05/05/19 09:10 Not Reportable 05/05/19 09:10 Not Reportable 05/05/19 09:10 Not Reportable 05/05/19 09:10 Not Reportable 05/05/19 09:10 Not Reportable 05/05/19 09:10 Not Reportable 05/05/19 09:10 Not Reportable 05/05/19 09:10 Not Reportable 05/05/19 09:10 Not Reportable 05/05/19 09:10 Not Reportable 05/05/19 09:10 Not Reportable 05/05/19 09:10 Not Reportable 05/05/19 09:10 Not Reportable 05/05/19 09:10 Not Reportable 05/05/19 09:10 Not Reportable 05/05/19 09:10 Not Reportable 05/05/19 09:10 Not Reportable 05/05/19 09:10 Not Reportable 05/05/19 09:10 Not Reportable 05/05/19 09:10 Acanthocytes (Spur) Not Reportable 05/05/19 09:10 Rouleaux Not Reportable 05/05/19 09:10 Not Reportable 05/05/19 09:10 Not Reportable 05/05/19 09:10 Not Reportable 05/05/19 09:10 Not Reportable 05/05/19 09:10 Hem Pathologist Commnt No 05/05/19 09:10 PT 13.3 Sec. (12.2-14.9) 05/05/19 15:05 INR 1.04 (0.87-1.13) 05/05/19 15:05 APTT 26.0 Sec. (24.2-36.6) 05/05/19 15:05 Heparin Anti-Xa Level 0.10 U.I./ml (0.3-0.7) L 05/07/19 03:59 Sodium 138 mmol/L (137-145) 05/06/19 04:17 Potassium 4.4 mmol/L (3.6-5.0) 05/06/19 04:17 Chloride 99.7 mmol/L (98-107) 05/06/19 04:17 Carbon Dioxide 21 mmol/L (22-30) L 05/06/19 04:17 22 mmol/L 05/06/19 04:17 BUN 23 mg/dL (7-17) H 05/06/19 04:17 1.1 mg/dL (0.7-1.2) 05/06/19 04:17 Estimated GFR > 60 ml/min 05/06/19 04:17 21 % 05/06/19 04:17 Glucose 229 mg/dL (65-100) H 05/06/19 04:17 Calcium 8.5 mg/dL (8.4-10.2) 05/06/19 04:17 1.00 mg/dL (0.1-1.2) 05/06/19 04:17 AST 649 units/L (5-40) H 05/06/19 04:17 ALT 210 units/L (7-56) H 05/06/19 04:17 95 units/L (35-129) 05/06/19 04:17 7.0 g/dL (6.3-8.2) 05/06/19 04:17 3.7 g/dL (3.9-5) L 05/06/19 04:17 1.1 % 05/06/19 04:17 Michelle (Yellow) 05/06/19 21:10 Cloudy (Clear) 05/06/19 21:10 5.0 (5.0-7.0) 05/06/19 21:10 Ur Specific [place] 1.036 (1.003-1.030) H 05/06/19 21:10 100 mg/dl mg/dL (Negative) 05/06/19 21:10 50 mg/dL (Negative) 05/06/19 21:10 Neg mg/dL (Negative) 05/06/19 21:10 Lg (Negative) 05/06/19 21:10 Neg (Negative) 05/06/19 21:10 Neg (Negative) 05/06/19 21:10 < 2.0 mg/dL (<2.0) 05/06/19 21:10 Ur Leukocyte Esterase Neg (Negative) 05/06/19 21:10 21.0 /HPF (0.0-6.0) H 05/06/19 21:10 26.0 /HPF (0.0-6.0) 05/06/19 21:10 U Epithel Cells (Auto) 1.0 /HPF (0-13.0) 05/06/19 21:10 Amorphous Crystals 1+ 05/06/19 21:10 Plasma/Serum Alcohol < 0.01 % (0-0.07) 05/05/19 19:36 Hepatitis A IgM Ab Non-reactive (NonReactive) 05/06/19 13:39 Hep Bs Antigen Non-reactive (Negative) 05/06/19 13:39 Hep B Core IgM Ab Non-reactive (NonReactive) 05/06/19 13:39 Reactive (NonReactive) A 05/06/19 13:39 Active Medications - Current Medications Current Medications: Generic Name Dose Route Start Last Admin Trade Name Freq PRN Reason Stop Dose Admin Clopidogrel Bisulfate 75 mg 05/06/19 16:00 05/07/19 10:32 Plavix PO 75 mg QDAY MIHAI Administration Hydromorphone HCl 1 mg 05/05/19 23:10 05/07/19 08:52 Dilaudid IV 1 mg Q4H PRN Administration Pain , Severe (7-10) Hydromorphone HCl 1 mg 05/07/19 12:30 Dilaudid IV 05/07/19 12:31 ONCE ONE Heparin Sodium/Sodium Chloride 25,000 unit in 500 mls @ 26 mls/hr 05/05/19 16:00 05/07/19 11:48 Heparin/ 0.45% Nacl-25,000 Unit/500 Ml IV 1,450 units/hr TITR MIHAI 29 mls/hr Administration Protocol 1,300 UNITS/HR Vancomycin HCl 1 gm in 250 mls @ 166.667 mls/hr 05/06/19 16:00 05/07/19 03:46 Vancomycin/Ns 1 Gm/250 Ml IV 166.667 mls/hr Q12H MIHAI Administration Metoclopramide HCl 10 mg 05/06/19 16:32 05/07/19 11:41 Reglan IV 10 mg Q6H PRN Administration Nausea And Vomiting Morphine Sulfate 2 mg 05/05/19 23:10 05/06/19 16:55 Morphine IV 2 mg Q4H PRN Administration Pain, Moderate (4-6) Ondansetron HCl 4 mg 05/06/19 06:17 05/07/19 08:52 Zofran IV 4 mg Q6H PRN Administration Nausea And Vomiting Oxycodone/Acetaminophen 1 tab 05/05/19 16:59 05/06/19 08:51 Percocet 5/325 PO 1 tab Q6H PRN Administration Pain, Moderate (4-6) Pantoprazole Sodium 40 mg 05/06/19 17:00 05/07/19 10:32 Protonix PO 40 mg QDAY MIHAI Administration Sodium Chloride 10 ml 05/05/19 22:00 05/07/19 10:31 Sodium Chloride Flush Syringe 10 Ml IV 10 ml BID MIHAI Administration Sodium Chloride 10 ml 05/05/19 16:59 05/07/19 08:52 Sodium Chloride Flush Syringe 10 Ml IV 10 ml PRN PRN Administration LINE FLUSH
--- NOTE | 2019-05-07 13:05 | Progress Note ---
Assessment and Plan 58-year-old female with occlusion of the right lower extremity arterial system with iliofemoral bypass with iliac small pseudoaneurysm. Patient had occlusion for greater than 24 hours prior to presenting with a cadaveric right lower extremity. The right foot has no motor or sensory function and no longer has pulses or Doppler signals. It is not salvageable. Family is aware and understands. Iliac pseudoaneurysm differential includes mycotic versus technical issues/clamp injury during anastomotic creation. Blood cultures pending. Ultimate plan will be for right below-knee amputation or above-knee amputation depending on arterial Doppler status, and tissue status. Popliteal artery patent on doppler but monophasic signals. The posterior compartment will need to be reassessed. The anterior and lateral compartment are pink. Subjective Date of service: 05/07/19 Interval history: Nonpalpable right pedal pulses. Left pedal pulses are strongly palpable. Right lower extremity is still warm to the calf and the foot is cool to warm. She has no motor function or sensory function of the right foot. She can move her right knee, but this was limited due to pain. She has no sensation beyond the upper calf/knee. Fasciotomy sites were taken down and the anterior and lateral compartments were pink but the posterior compartment was less pink. Some tiny bleeders noted treated with silver nitrate. Objective - Constitutional Vitals: Vital Signs - 12hr 05/07/19 05/07/19 05/07/19 01:10 01:20 01:30 Temperature Pulse Rate 116 H 117 H 115 H Pulse Rate [ From Monitor] Respiratory 22 22 21 Rate Blood Pressure 153/82 153/82 161/91 O2 Sat by Pulse 96 99 98 Oximetry 05/07/19 05/07/19 05/07/19 01:40 01:50 02:00 Temperature Pulse Rate 118 H 116 H 126 H Pulse Rate [ From Monitor] Respiratory 23 22 22 Rate Blood Pressure 161/91 161/91 134/76 O2 Sat by Pulse 99 99 99 Oximetry 05/07/19 05/07/19 05/07/19 02:10 02:20 02:30 Temperature Pulse Rate 118 H 119 H 118 H Pulse Rate [ From Monitor] Respiratory 24 24 19 Rate Blood Pressure 134/76 134/76 154/86 O2 Sat by Pulse 97 97 97 Oximetry 05/07/19 05/07/19 05/07/19 02:40 02:50 03:00 Temperature Pulse Rate 118 H 118 H 117 H Pulse Rate [ From Monitor] Respiratory 23 24 20 Rate Blood Pressure 154/86 154/86 151/87 O2 Sat by Pulse 97 98 97 Oximetry 05/07/19 05/07/19 05/07/19 03:10 03:20 03:30 Temperature Pulse Rate 117 H 117 H 118 H Pulse Rate [ From Monitor] Respiratory 27 H 23 24 Rate Blood Pressure 151/87 151/87 163/84 O2 Sat by Pulse 98 98 97 Oximetry 05/07/19 05/07/19 05/07/19 03:40 03:48 03:50 Temperature 98.7 F Pulse Rate 116 H 117 H Pulse Rate [ From Monitor] Respiratory 25 H 26 H Rate Blood Pressure 163/84 170/80 O2 Sat by Pulse 96 98 Oximetry 05/07/19 05/07/19 05/07/19 04:00 04:10 04:20 Temperature Pulse Rate 117 H 119 H 117 H Pulse Rate [ 119 H From Monitor] Respiratory 18 22 22 Rate Blood Pressure 170/80 170/80 170/80 O2 Sat by Pulse 98 98 96 Oximetry 05/07/19 05/07/19 05/07/19 04:30 04:40 04:50 Temperature Pulse Rate 119 H 117 H 115 H Pulse Rate [ From Monitor] Respiratory 21 23 19 Rate Blood Pressure 156/82 156/82 156/82 O2 Sat by Pulse 97 96 95 Oximetry 05/07/19 05/07/19 05/07/19 05:00 05:10 05:20 Temperature Pulse Rate 115 H 116 H 116 H Pulse Rate [ From Monitor] Respiratory 18 28 H 21 Rate Blood Pressure 152/84 152/84 152/84 O2 Sat by Pulse 97 97 98 Oximetry 05/07/19 05/07/19 05/07/19 05:30 05:40 05:50 Temperature Pulse Rate 118 H 119 H 119 H Pulse Rate [ From Monitor] Respiratory 23 18 24 Rate Blood Pressure 160/80 152/84 152/84 O2 Sat by Pulse 98 97 97 Oximetry 05/07/19 05/07/19 05/07/19 06:00 06:10 06:20 Temperature Pulse Rate 119 H 117 H 119 H Pulse Rate [ From Monitor] Respiratory 22 23 24 Rate Blood Pressure 167/90 167/90 167/90 O2 Sat by Pulse 97 96 96 Oximetry 05/07/19 05/07/1919 06:30 06:40 06:50 Temperature Pulse Rate 118 H 112 H 115 H Pulse Rate [ From Monitor] Respiratory 21 21 18 Rate Blood Pressure 175/91 175/91 175/91 O2 Sat by Pulse 96 97 98 Oximetry 05/07/19 05/07/19 07:48 12:00 Temperature 98.1 F 97.6 F Pulse Rate Pulse Rate [ From Monitor] Respiratory Rate Blood Pressure O2 Sat by Pulse Oximetry General appearance: Present: mild distress - EENT Eyes: EOM intact ENT: hearing intact - Respiratory Respiratory effort: normal Extremities: abnormal (see subjective) - Psychiatric Psychiatric: cooperative, other (sleepy) - Labs CBC & Chem 7: 05/07/19 03:59 05/06/19 04:17 Labs: Abnormal lab results 05/06/19 05/06/19 05/07/19 Range/Units 13:39 21:10 03:59 Heparin Anti-Xa Level 0.10 L (0.3-0.7) U.I./ml Ur Specific [place] 1.036 H (1.003-1.030) Urine WBC (Auto) 21.0 H (0.0-6.0) /HPF Hepatitis C Antibody Reactive A (NonReactive) Medications & Allergies - Medications Allergies/Adverse Reactions: Allergies aspirin Allergy (Verified 05/05/19 15:05) Unknown lisinopril Allergy (Verified 05/05/19 15:05) Angioedema Penicillins Allergy (Verified 05/05/19 15:05) Swelling tramadol Allergy (Verified 05/05/19 15:05) Itching Home Medications: Home Medications Medication Instructions Recorded Confirmed Last Taken Type Acetaminophen [Mapap] 1,000 mg PO QID PRN #60 capsule 03/19/19 Unknown Rx Cyclobenzaprine [Flexeril] 10 mg PO TID PRN #30 tablet 03/19/19 Unknown Rx Diclofenac 1% [Diclofenac 1% 1 applicatio TP QID PRN #1 tube 03/19/19 Unknown Rx topical gel] Active Medications: Generic Name Dose Route Start Last Admin Trade Name Freq PRN Reason Stop Dose Admin Clopidogrel Bisulfate 75 mg 05/06/19 16:00 05/07/19 10:32 Plavix PO 75 mg QDAY MIHAI Administration Hydromorphone HCl 1 mg 05/05/19 23:10 05/07/19 08:52 Dilaudid IV 1 mg Q4H PRN Administration Pain , Severe (7-10) Heparin Sodium/Sodium Chloride 25,000 unit in 500 mls @ 26 mls/hr 05/05/19 16:00 05/07/19 11:48 Heparin/ 0.45% Nacl-25,000 Unit/500 Ml IV 1,450 units/hr TITR MIHAI 29 mls/hr Administration Protocol 1,300 UNITS/HR Vancomycin HCl 1 gm in 250 mls @ 166.667 mls/hr 05/06/19 16:00 05/07/19 03:46 Vancomycin/Ns 1 Gm/250 Ml IV 166.667 mls/hr Q12H MIHAI Administration Metoclopramide HCl 10 mg 05/06/19 16:32 05/07/19 11:41 Reglan IV 10 mg Q6H PRN Administration Nausea And Vomiting Morphine Sulfate 2 mg 05/05/19 23:10 05/06/19 16:55 Morphine IV 2 mg Q4H PRN Administration Pain, Moderate (4-6) Ondansetron HCl 4 mg 05/06/19 06:17 05/07/19 08:52 Zofran IV 4 mg Q6H PRN Administration Nausea And Vomiting Oxycodone/Acetaminophen 1 tab 05/05/19 16:59 05/06/19 08:51 Percocet 5/325 PO 1 tab Q6H PRN Administration Pain, Moderate (4-6) Pantoprazole Sodium 40 mg 05/06/19 17:00 05/07/19 10:32 Protonix PO 40 mg QDAY MIHAI Administration Sodium Chloride 10 ml 05/05/19 22:00 05/07/19 10:31 Sodium Chloride Flush Syringe 10 Ml IV 10 ml BID MIHAI Administration Sodium Chloride 10 ml 05/05/19 16:59 05/07/19 08:52 Sodium Chloride Flush Syringe 10 Ml IV 10 ml PRN PRN Administration LINE FLUSH
[2019-05-07 16:11] LABS: Hematocrit 32.5 % (30.3-42.9); Hemoglobin 10.8 gm/dl (10.1-14.3); Mean Corpuscular HGB Conc 33 % (30-34); Mean Corpuscular Volume 89 fl (79-97); Platelet Count 207 K/mm3 (140-440); Red Blood Count 3.66 M/mm3 (3.65-5.03); Red Cell Distribution Width 16.9 % (13.2-15.2)
--- NOTE | 2019-05-07 16:52 | Progress Note ---
Assessment and Plan Cultures: Blood culture 05/05/2019 no growth so far Assessment: 58 y/o female with history of smoking abuse, hypertension and peripheral vascular disease s/p multiple prior revascularization with stent placement at [facility], admitted on 05/05/2019 due to severe acute onset right lef pain and cold sensation as well as decreased foot sensation and strength started on 05/03/2019: 1) SIRS: present on admission with leukocytosis, tachycardia, likely due to acute right limb ischemia +/- right limb compartment syndrome. Blood culture so far negative. Patient has no respiratory or urinary symptoms. No recent foot wound or ulcers. 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 Patient was taken to the OR on 05/05/2019 for acute right limb ischemia with motor loss and sensation loss to her foot and toes. She underwent a revascularization procedure and thrombectomy of her right lower extremity and covered stent placement, she was then taken back to the OR same day for right leg 4 compartment fasciotomy due to compartment syndrome status post revascularization. 3) Hypertensive urgency 4) Elevated LFTs: ? unclear source 5) Hepatitis C of unknown acuity - ordered hep C PCR to evaluate Recommendations: follow up blood cultures obtain UA/urine culture and CXR continue vancomycin IV for now, will stop soon in blood culture negative for 48h patient at risk for limb amputation Liver US normal Hepatitis C PCR - ordered Will follow. dAriana Arreguin MD [facility] ([facility]) M: [phone] O: [phone] F: [phone] Subjective Date of service: 05/07/19 Interval history: No acute change today Objective - Exam Narrative Exam: General appearance: Alert in NAD Eyes: anicteric sclerae, moist conjunctivae; no lid-lag; PERRLA HENT: Atraumatic; oropharynx clear with moist mucous membranes and no mucosal ulcerations/no oral thrush; normal hard and soft palate. Lungs: CTA, with normal respiratory effort and no intercostal retractions CV: RRR no murmur Abdomen: Soft, non-tender; no masses or hepatosplenomegaly Extremities: +right leg marked edema covered with surgical dressings. Skin: No rash. Psych: Appropriate affect, alert and oriented to person, place and time. Neuro: alert and oriented x 3. +decreased sensation and strength in right toes/foot - Constitutional Vitals: Vital Signs Temp Pulse Resp BP Pulse Ox 97.6 F 114 H 24 145/78 97 05/07/19 12:00 05/07/19 15:00 05/07/19 15:00 05/07/19 15:00 05/07/19 15:00 Temperature -Last 24 Hours Temperature 97.6 F Temperature 98.1 F Temperature 98.7 F Temperature 99.3 F Temperature 98.8 F - Labs CBC & Chem 7: 05/07/19 15:45 05/06/19 04:17 Labs: Abnormal lab results 05/06/19 05/07/19 05/07/19 Range/Units 21:10 03:59 13:30 WBC (4.5-11.0) K/mm3 RDW (13.2-15.2) % Heparin Anti-Xa Level 0.10 L < 0.10 L (0.3-0.7) U.I./ml Ur Specific [place] 1.036 H (1.003-1.030) Urine WBC (Auto) 21.0 H (0.0-6.0) /HPF 05/07/19 Range/Units 15:45 WBC 22.1 H (4.5-11.0) K/mm3 RDW 16.9 H (13.2-15.2) % Heparin Anti-Xa Level (0.3-0.7) U.I./ml Ur Specific [place] (1.003-1.030) Urine WBC (Auto) (0.0-6.0) /HPF
[2019-05-07 17:04] LABS: Albumin 2.7 g/dL (3.9-5); Calcium 7.9 mg/dL (8.4-10.2)
[2019-05-07] MEDS: PERCOCET 5/325 PO PRN (20:24)
[2019-05-07] MEDS: MORPHINE IV PRN (22:56)
[2019-05-07] MEDS ORDERED: PEPCID IV SCH (23:00)
[2019-05-07] MEDS ORDERED: PEPCID IV ONE (23:05)
[2019-05-08] MEDS ORDERED: BENADRYL IV ONE (00:10)
[2019-05-08] MEDS: HEPARIN/ 0.45% NACL-25,000 UNIT/500 ML 25,000 UNIT/500 ML BAG IV SCH (01:04)
--- NOTE | 2019-05-08 02:31 | Event Note ---
code MET Patient unresponsive with agonal respiration Stick check was less than 20, D50 given Dr. Blair Consulted to intubate the patient Patient is hypotensive with systolic in the low 74 We will fluid bolus, start dopamine drip He also had coffee-ground emesis, Protonix given Consult GI, critical care, hold heparin drip Obtain stat CAT scan of the head check labs, give aztreonam Will Reach out to vascular regarding heparin drip and GI bleed
[2019-05-08] MEDS ORDERED: GLUCAGEN IM ONE (02:36)
[2019-05-08] MEDS ORDERED: PROTONIX IV ONE ×2 (03:07→04:36)
[2019-05-08] MEDS ORDERED: LEVOPHED DRIP 4 MG/NS 250 ML 4 MG/250 ML BAG IV ONE (03:10)
[2019-05-08] MEDS ORDERED: NACL 0.9% 1000 ML 1,000 ML ONE ×3 (03:10→17:04)
--- NOTE | 2019-05-08 03:35 | XRay Report ---
CHEST 1 VIEW 05/08/2019 3:11 AM INDICATION / CLINICAL INFORMATION: ET tube. COMPARISON: Chest x-ray 05/06/2019 FINDINGS: SUPPORT DEVICES: New ET tube has tip 2.5 cm above olesya. Thoracic stimulator probes are again noted, unchanged. HEART / MEDIASTINUM: No significant abnormality. LUNGS / PLEURA: No significant pulmonary or pleural abnormality. No pneumothorax. ADDITIONAL FINDINGS: Moderate gaseous distention of stomach has developed without visualized NG tube. IMPRESSION: 1. Moderate gaseous distention of stomach. Recommend NG tube placement. Signer Name: Arun March MD Signed: 05/08/2019 3:30 AM Workstation Name: [id number]
[2019-05-08] MEDS ORDERED: INTROPIN DRIP 800 MG/D5W 250 ML 800 MG/250 ML BAG IV ONE (03:39)
[2019-05-08] MEDS ORDERED: NACL 0.9% 1000 ML 2,000 ML IV ONE (03:40)
--- NOTE | 2019-05-08 03:43 | Event Note ---
Date: 05/08/19 Called by hospitalist physician for intubation for acute respiratory failure. Upon arrival, patient altered, GCS of 3, not protecting airway. Patient placed on nasal cannula, shoulder rolls are placed underneath the shoulders to align the ear to the sternal notch, placed on nasal cannula 15 L/m, and receives [id number] ventilation. Patient given 20 mg of etomidate, and 100 mg of rocuronium. Copious secretions are suctioned. Video laryngoscopy is performed, and vocal cords are easily identified. A 7.5 endotracheal tube is inserted through the vocal cords, under direct visualization. Postintubation, there is appropriate postintubation color change, condensation noted in the endotracheal tube, and end-tidal capnography is appropriate. Hospital physician, Dr. Clement present for the procedure. X-ray shows appropriate placement of the endotracheal tube. We will defer postintubation management to the inpatient team.
[2019-05-08] MEDS ORDERED: NACL 0.9% 1000 ML 1,000 ML IV SCH (04:00)
--- NOTE | 2019-05-08 04:06 | Cat Scan Report ---
CT HEAD WITHOUT CONTRAST INDICATION / CLINICAL INFORMATION: unrespo. TECHNIQUE: All CT scans at this location are performed using CT dose reduction for ALARA by means of automated e xposure control. COMPARISON: Head CT 03/18/2019 FINDINGS: HEMORRHAGE: None. EXTRA-AXIAL SPACES: Normal in size and morphology for the patient's age. VENTRICULAR SYSTEM: Normal in size and morphology for the patient's age. CEREBRAL PARENCHYMA: No significant abnormality. No acute territorial infarct. MIDLINE SHIFT OR HERNIATION: None. CEREBELLUM / BRAINSTEM: No significant abnormality. ORBITS: Normal as visualized. SOFT TISSUES of HEAD: No significant abnormality. CALVARIUM: No significant abnormality. PARANASAL SINUSES / MASTOID AIR CELLS: Acute air-fluid level right maxillary and sphenoid sinuses, ne w since prior study with moderate mucosal thickening bilateral anterior ethmoid air cells. ADDITIONAL FINDINGS: Moderate vascular calcifications left vertebral and both cavernous carotid arter ies are again noted. IMPRESSION: 1. Acute right maxillary and sphenoid sinusitis. 2. No intracranial bleed or large territorial infarction. Signer Name: Arun March MD Signed: 05/08/2019 4:01 AM Workstation Name: [id number]
[2019-05-08] MEDS ORDERED: AZACTAM/NS 1 GM/50 ML 1 GM/50 ML VIAL IV ONE (04:21)
[2019-05-08] MEDS ORDERED: D50W (25GM) Syringe IV ONE ×2 (04:34→09:00)
[2019-05-08] MEDS ORDERED: NACL 0.9% 1000 ML 1,000 ML IV ONE (04:36)
--- NOTE | 2019-05-08 04:49 | XRay Report ---
ABDOMEN 1 VIEW(S) INDICATION / CLINICAL INFORMATION: feeding tube placement. COMPARISON: None available. FINDINGS: TUBES / LINES: NG tube has tip in proximal stomach with side hole in distal thoracic esophagus and sh ould be advanced another 10 cm. ET tube projects in expected position BOWEL GAS PATTERN: Moderate gaseous distention of stomach. FREE AIR / EXTRALUMINAL GAS: None seen. ADDITIONAL FINDINGS: No significant additional findings. IMPRESSION: 1. NG tube should be advanced further distally. Signer Name: Arun March MD Signed: 05/08/2019 4:44 AM Workstation Name: [email or web address]
[2019-05-08] MEDS: INTROPIN DRIP 800 MG/D5W 250 ML 800 MG/250 ML BAG IV SCH ×2 (04:50→17:00)
--- NOTE | 2019-05-08 04:50 | XRay Report ---
CHEST 1 VIEW 05/08/2019 4:26 AM INDICATION / CLINICAL INFORMATION: tube conf. COMPARISON: This study at 4:26 AM was compared to earlier study at 3:11 AM same day FINDINGS: SUPPORT DEVICES: Endotracheal tube again projects in expected position. Nasogastric tube has tip in p roximal stomach with side hole in distal thoracic esophagus and should be advanced further distally. HEART / MEDIASTINUM: No significant abnormality. LUNGS / PLEURA: No significant pulmonary or pleural abnormality. No pneumothorax. ADDITIONAL FINDINGS: No significant additional findings. IMPRESSION: 1. NG tube should be advanced further into stomach. Signer Name: Arun March MD Signed: 05/08/2019 4:45 AM Workstation Name: [id number]
[2019-05-08 04:58] LABS: ABG Base Excess -24.7 mmol/L (-2.0-3.0); ABG HCO3 5.1 mmol/L (20.0-26.0); ABG Methemoglobin 0.7 % (0.0-1.5); ABG Oxygen Saturation 99.5 % (95.0-99.0)
[2019-05-08] MEDS ORDERED: LEVOPHED DRIP 4 MG/NS 250 ML 4 MG/250 ML BAG IV SCH ×2 (05:00→16:00)
[2019-05-08 05:14] LABS: ABG PH 6.963 pH Units (7.350-7.450); ABG PO2 377.2 mm Hg (80.0-90.0)
--- NOTE | 2019-05-08 05:49 | Consultation ---
History of Present Illness Consult date: 05/08/19 Requesting physician: ALEX GOLDBERG History of present illness: 58 y/o female with history of smoking abuse, hypertension and peripheral vascu lar disease s/p multiple prior revascularization with stent placement at [facility], admitted on 05/05/2019 due to severe acute onset right lef pain and cold sensation as well as decreased foot sensation and strength started on 05/03/2019. In the ED, temp 98.5, HR 107, R 17, BP 213/100. WBC 19.7. Creat 1.1. 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 Patient was taken to the OR on 05/05/2019 for acute right limb ischemia with motor loss and sensation loss to her foot and toes. She underwent a revascularization procedure and thrombectomy of her right lower extremity and covered stent placement, she was then taken back to the OR for right leg 4 compartment fasciotomy due to compartment syndrome status post revascularization. Patient has been in the IMCU on heparin infusion, Code MET called this morning, patient was unresponsive, hypoglycemic with POC accucheck of less than 20, GCS 3- orally intubated by ED physician. Copious secretions noted in tabitha posterior pharynx. Patient is hypotensive, dopamine was started by hospitalist and one dose of Aztreonam ordered, ABG shows severe uncompensated metabolic acidosis with pH 6.963/23/377/HCO3 5.1. Base excess -24.7 and Hgb of 6.9 I have been consulted for critical care management. Patient was seen and examined. Orally intubated ETT 7.5 at 23cm at the lip, on dopamine through a peripheral line and on going hypotension Past History Past Medical History: hypertension, hyperlipidemia, PVD Past Surgical History: Other (Vascular surgery) Social history: single, smoking Family history: diabetes, hypertension Medications and Allergies Allergies Allergy/AdvReac Type Severity Reaction Status Date / Time aspirin Allergy Unknown Verified 05/05/19 15:05 lisinopril Allergy Angioedema Verified 05/05/19 15:05 Penicillins Allergy Swelling Verified 05/05/19 15:05 tramadol Allergy Itching Verified 05/05/19 15:05 Home Medications Medication Instructions Recorded Confirmed Last Taken Type Acetaminophen [Mapap] 1,000 mg PO QID PRN #60 capsule 03/19/19 Unknown Rx Cyclobenzaprine [Flexeril] 10 mg PO TID PRN #30 tablet 03/19/19 Unknown Rx Diclofenac 1% [Diclofenac 1% 1 applicatio TP QID PRN #1 tube 03/19/19 Unknown Rx topical gel] Active Meds: Active Medications Clopidogrel Bisulfate (Plavix) 75 mg PO QDAY [facility] Last Admin: 05/07/19 10:32 Dose: 75 mg Documented by: Heparin Sodium/Sodium Chloride (Heparin/ 0.45% Nacl-25,000 Unit/500 Ml) 25,000 unit in 500 mls @ 26 mls/hr IV TITR MIHAI; Protocol Last Admin: 05/08/19 01:04 Dose: 1,700 units/hr, 34 mls/hr Documented by: Vancomycin HCl (Vancomycin/Ns 1 Gm/250 Ml) 1 gm in 250 mls @ 166.667 mls/hr IV Q12H MIHAI Last Admin: 05/07/19 15:26 Dose: 166.667 mls/hr Documented by: Sodium Chloride (Nacl 0.9% 1000 Ml) 1,000 mls @ 150 mls/hr IV DIRECT MIHAI Dopamine HCl/Dextrose (Intropin Drip 800 Mg/D5w 250 Ml) 800 mg in 250 mls @ 10.035 mls/hr IV TITR MIHAI; Protocol Last Titration: 05/08/19 05:38 Dose: 10 mcg/kg/min, 16.725 mls/hr Documented by: Sodium Bicarbonate 150 meq/ (Dextrose) 1,150 mls @ 75 mls/hr IV DIRECT MIHAI Metoclopramide HCl (Reglan) 10 mg IV Q6H PRN PRN Reason: Nausea And Vomiting Last Admin: 05/07/19 17:55 Dose: 10 mg Documented by: Ondansetron HCl (Zofran) 4 mg IV Q6H PRN PRN Reason: Nausea And Vomiting Last Admin: 05/07/19 22:10 Dose: 4 mg Documented by: Pantoprazole Sodium (Protonix) 40 mg PO QDAY [facility] Last Admin: 05/07/19 10:32 Dose: 40 mg Documented by: Sodium Chloride (Sodium Chloride Flush Syringe 10 Ml) 10 ml IV BID [facility] Last Admin: 05/07/19 22:10 Dose: 10 ml Documented by: Sodium Chloride (Sodium Chloride Flush Syringe 10 Ml) 10 ml IV PRN PRN PRN Reason: LINE FLUSH Last Admin: 05/07/19 08:52 Dose: 10 ml Documented by: Physical Examination Vital signs: Vital Signs Temp Pulse Resp BP Pulse Ox 98.5 F 107 H 17 213/100 100 05/05/19 09:10 05/05/19 09:10 05/05/19 09:10 05/05/19 09:10 05/05/19 09:10 Reviewed Gen: Not in acute distress,orally intubated to [facility], HEENT: Normocephalic, atraumatic Neck: supple, no JVD Heart: Tachycardia, S1 and S2 reg, no murmurs, rubs or gallop Lungs: Clear, no crackles, no wheeze Abd: soft, non tender, non distended, normal BS, Ext: Right leg covered with dressing, dressings over the groin Neuro: Obtunded not obeying commands, Results - Laboratory Findings CBC and BMP: 05/08/19 06:45 05/08/19 06:45 ABG ABG pH 6.963 pH Units (7.350-7.450) L* 05/08/19 04:30 ABG pCO2 23.0 mm Hg 05/08/19 04:30 ABG pO2 377.2 mm Hg (80.0-90.0) H 05/08/19 04:30 ABG O2 Saturation 99.5 % (95.0-99.0) H 05/08/19 04:30 PT/INR, D-dimer PT 13.3 Sec. (12.2-14.9) 05/05/19 15:05 INR 1.04 (0.87-1.13) 05/05/19 15:05 Abnormal lab findings: Abnormal Labs 05/05/19 05/05/19 05/06/19 09:10 09:10 04:17 WBC 19.7 H 18.8 H Hgb 14.5 H Hct 43.8 H RDW 16.8 H 16.8 H Lymph % (Auto) 8.5 L [place] # 1.4 H Seg Neutrophils % 84.2 H Seg Neuts % (Manual) 73.0 H Seg Neutrophils # 15.8 H Seg Neutrophils # Man 14.4 H Heparin Anti-Xa Level ABG pH ABG pO2 ABG HCO3 ABG O2 Saturation ABG Base Excess ABG Hemoglobin Sodium Potassium Chloride Carbon Dioxide BUN 25 H Creatinine Glucose 137 H POC Glucose Calcium AST 204 H ALT 101 H Alkaline Phosphatase Total Protein 8.3 H Albumin Ur Specific [place] Urine WBC (Auto) Hepatitis C Antibody 05/06/19 05/06/19 05/06/19 04:17 13:39 21:10 WBC Hgb Hct RDW Lymph % (Auto) [place] # Seg Neutrophils % Seg Neuts % (Manual) Seg Neutrophils # Seg Neutrophils # Man Heparin Anti-Xa Level ABG pH ABG pO2 ABG HCO3 ABG O2 Saturation ABG Base Excess ABG Hemoglobin Sodium Potassium Chloride Carbon Dioxide 21 L BUN 23 H Creatinine Glucose 229 H POC Glucose Calcium AST 649 H ALT 210 H Alkaline Phosphatase Total Protein Albumin 3.7 L Ur Specific [place] 1.036 H Urine WBC (Auto) 21.0 H Hepatitis C Antibody Reactive A 05/07/19 05/07/19 05/07/19 03:59 13:30 15:45 WBC 22.1 H Hgb Hct RDW 16.9 H Lymph % (Auto) [place] # Seg Neutrophils % Seg Neuts % (Manual) Seg Neutrophils # Seg Neutrophils # Man Heparin Anti-Xa Level 0.10 L < 0.10 L ABG pH ABG pO2 ABG HCO3 ABG O2 Saturation ABG Base Excess ABG Hemoglobin Sodium Potassium Chloride Carbon Dioxide BUN Creatinine Glucose POC Glucose Calcium AST ALT Alkaline Phosphatase Total Protein Albumin Ur Specific [place] Urine WBC (Auto) Hepatitis C Antibody 05/07/19 05/08/19 05/08/19 15:45 02:37 04:06 WBC Hgb Hct RDW Lymph % (Auto) [place] # Seg Neutrophils % Seg Neuts % (Manual) Seg Neutrophils # Seg Neutrophils # Man Heparin Anti-Xa Level ABG pH ABG pO2 ABG HCO3 ABG O2 Saturation ABG Base Excess ABG Hemoglobin Sodium 135 L Potassium 5.9 H D Chloride 93.9 L Carbon Dioxide 12 L D BUN 65 H Creatinine 5.2 H D Glucose 151 H POC Glucose < 40 L 174 H Calcium 7.9 L AST 2241 H ALT 1793 H Alkaline Phosphatase 144 H Total Protein Albumin 2.7 L Ur Specific [place] Urine WBC (Auto) Hepatitis C Antibody 05/08/19 05/08/19 04:30 05:06 WBC Hgb Hct RDW Lymph % (Auto) [place] # Seg Neutrophils % Seg Neuts % (Manual) Seg Neutrophils # Seg Neutrophils # Man Heparin Anti-Xa Level ABG pH 6.963 L* ABG pO2 377.2 H ABG HCO3 5.1 L ABG O2 Saturation 99.5 H ABG Base Excess -24.7 L ABG Hemoglobin 6.9 L Sodium Potassium Chloride Carbon Dioxide BUN Creatinine Glucose POC Glucose 173 H Calcium AST ALT Alkaline Phosphatase Total Protein Albumin Ur Specific [place] Urine WBC (Auto) Hepatitis C Antibody - Diagnostic Findings Chest x-ray: image reviewed (RIJ in good position, ETT, no acute pulmoanry infiltrates) Assessment and Plan Severe sepsis with septic shock Acute hypoxic respiratory failure Acute liver failure, elevated transaminases, possible ischemic/rhabdo Acute renal failure- probably from rhabdomyolysis, possible vasomotor nephropathy Acute metabolic-toxic encephalopathy Acute anemia Severe metabolic acidosis Severe hypoglycemia Acute ischemia right lower extremity s/p right lower extremity thrombectomy, angioplasty, stent placement ,revascularization Right lower extremity compartment syndrome Status post right leg 4 compartment fasciotomy Peripheral artery disease s/p multiple vasc bypass procedures Thrombocytopenia Hyperkalemia- medical management -Adjust minute ventilation for better gas exchange -High negative base excess, start bicarbonate infusion for volume resuscitation and possible rhabdomyolysis -CBC, CMP, Coagulation profile, Type and Cross match blood- HgB on ABG 6.9 -Follow up ABG in 2 hours -Mechanical ventilatory support, lung protective strategies -Hold heparin, start PPI therapeutic dosing -Place gr catheter, she is critically ill with acute renal failure and is on vasopressor support -VAP bundle addressed -Wean vasopressor support for MAP >65 -Avoid nephrotoxic agents, adjust all medications for GFR -Accuchecks, to avoid hypoglycemia -VTE prophylaxis- was on therapeutic anticoagulation, will hold in view of coffee ground in OGT -Supportive transfusions to keep HgB >7g/dL -PITO ultrasound scan, avoid hepatotoxins -GI consult -Will need her right lower extremity re-imaged -Check CK and r/o rhabdomyolysis, will need amputation, as this seems to be the source of her critical illness -Critical care bundles addressed -Place central venous access -Wean vasopressor for MAP >65 -Bicarbonate infusion for severe acidosis, and hyperkalemia -Administer kayexalate, calcium gluconate and insulin/dextrose -Discussed with her daughter over the phone. Updated her re care plan CONDITION: CRITICAL PROGNOSIS: GUARDED TO GRAVE CODE STATUS: FULL CODE The high probability of a clinically significant, sudden or life-threatening deterioration of the [cardiac, neurology] system(s) required my full and direct attention, intervention and personal management. The aggregate critical care time was [120] minutes without overlap. Time includes spent on; [x] Data Review and interpretation [x] Patient assessment and monitoring of vital signs [x] Documentation [x] Medication orders and management
[2019-05-08] MEDS ORDERED: SODIUM BICARBONATE 150 MEQ in D5W 1,000 ML IV SCH ×2 (06:00→08:00)
--- NOTE | 2019-05-08 07:07 | XRay Report ---
ABDOMEN 1 VIEW(S) 05/08/2019 6:32 AM INDICATION / CLINICAL INFORMATION: feeding tube. COMPARISON: None available. FINDINGS: Right internal jugular central line projects over SVC. The tip of an esophagogastric tube projects over the body of the stomach in expected position. Signer Name: Arun March MD Signed: 05/08/2019 7:03 AM Workstation Name: [employer]
--- NOTE | 2019-05-08 07:07 | XRay Report ---
CHEST 1 VIEW 05/08/2019 6:32 AM INDICATION / CLINICAL INFORMATION: central line placement. COMPARISON: Chest x-ray 4:26 AM same day FINDINGS: SUPPORT DEVICES: New right internal jugular central line projects over SVC. ET tube and NG tube again project in expected position. HEART / MEDIASTINUM: No significant abnormality. LUNGS / PLEURA: No significant pulmonary or pleural abnormality. No pneumothorax. ADDITIONAL FINDINGS: No significant additional findings. IMPRESSION: 1. No acute findings. Signer Name: Arun March MD Signed: 05/08/2019 7:03 AM Workstation Name: [id number] [employer]
--- NOTE | 2019-05-08 07:35 | Procedure Note ---
Date of procedure: 05/08/19 Pre-op diagnosis: Hemorrhagic shock, severe sepsis with septic shock Post-op diagnosis: same Procedure: RIJ CVC placement. Indications- IV access, severe sepsis with septic shock, hemorrhagic shock- needs administration of vasoactive drugs and blood products. Consent obtained over the phone from her daughter Time out done, universal precautions addressed Patient cleaned and draped in sterile fashion. Under ultrasound guidance the RIJ was canulated, dark blood aspirated. Guidewire passed, stab wound, dilated the vein. Triple lumen placed. Guidewire removed. No immediate complications. Cleaned and secured in sterile fashion. Post procedure CXR ordered. Anesthesia: other Surgeon: VINEET ANN Estimated blood loss: none Pathology: none Condition: critical Disposition: ICU
[2019-05-08 07:45] LABS: Hematocrit 23.8 % (30.3-42.9); Hemoglobin 7.7 gm/dl (10.1-14.3); Mean Corpuscular HGB Conc 32 % (30-34); Mean Corpuscular Volume 91 fl (79-97); Platelet Count 137 K/mm3 (140-440); Red Blood Count 2.62 M/mm3 (3.65-5.03); Red Cell Distribution Width 17.2 % (13.2-15.2)
[2019-05-08 07:59] LABS: Albumin 1.8 g/dL (3.9-5); Calcium 6.1 mg/dL (8.4-10.2)
[2019-05-08 08:20] LABS: Hematocrit 25.6 % (30.3-42.9); Hemoglobin 8.4 gm/dl (10.1-14.3)
--- NOTE | 2019-05-08 08:49 | Event Note ---
Date: 05/08/19 Discussed with renal who will see her Discussed with vascular Get HIT panel Updated the family at the bedside re care plan. Also notified them that renal and vascular will be evaluating her today
[2019-05-08] MEDS ORDERED: HumuLIN R IV ONE (09:00)
[2019-05-08] MEDS ORDERED: KIONEX PR ONE (09:00)
[2019-05-08] MEDS ORDERED: CALCIUM GLUCONATE 2,000 MG in NACL 0.9% 100 ML IV ONE (09:30)
[2019-05-08] MEDS ORDERED: PROTONIX IV SCH (10:00)
[2019-05-08] MEDS: SODIUM CHLORIDE FLUSH SYRINGE 10 ML IV SCH (10:02)
[2019-05-08] MEDS: PLAVIX PO SCH ×2 (10:04→13:05)
--- NOTE | 2019-05-08 10:27 | Consultation ---
History of Present Illness - Reason for Consult Consult date: 05/08/19 acute renal failure, metabolic acidosis - History of Present Illness Mrs. Fields is a 58yo female with PAD and prior hx of RLE revasculariation, hypertension and tobacco use who presented to the ED on May 05 with RLE pain. Patient initially reported 3h hx of progressive worsening of pain at time of presentation to the ED. However, per vascular surgery note, patient's pain initially began on May 03. Pt reported 7/10, constant leg pain exacerbated by with movement. She reported that leg felt "cold". Pt seen and evaluated in ED and found to have RLE ischemia, SIRS. IR and vascular surgery team notified in ED, and patient was taken urgently to the petroleum refinery laborer for intervention. CTA was performed which demonstrated complete occlusion of multiple vessels of the right lower extremity approximately 3 cm below the bifurcation. Additionally, CTA demonstrated pseudoaneurysm at the occipital anastomosis of the common iliac artery to common femoral artery bypass graft. She subsequently underwent 4 compartment fasciotomy of right lower extremity for compartment syndrome following revascularization Overnight, MET called as patient was found unresponsive with agonal respiration. Patient was hypotensive w/ SBP in 70s. She was subsequently intubated and started on Dopamine. Accucheck glucose 20. Labs obtained and notable for creatinine 6.1, Bicarb 8, K 5.4, CK 43k. Nephrology consultation requested by line haul owner operator. Past History Past Medical History: hypertension, hyperlipidemia, PVD Past Surgical History: Other (Vascular surgery) Social history: single, smoking Family history: diabetes, hypertension Medications and Allergies Allergies Allergy/AdvReac Type Severity Reaction Status Date / Time aspirin Allergy Unknown Verified 05/05/19 15:05 lisinopril Allergy Angioedema Verified 05/05/19 15:05 Penicillins Allergy Swelling Verified 05/05/19 15:05 tramadol Allergy Itching Verified 05/05/19 15:05 Home Medications Medication Instructions Recorded Confirmed Last Taken Type Acetaminophen [Mapap] 1,000 mg PO QID PRN #60 capsule 03/19/19 Unknown Rx Cyclobenzaprine [Flexeril] 10 mg PO TID PRN #30 tablet 03/19/19 Unknown Rx Diclofenac 1% [Diclofenac 1% 1 applicatio TP QID PRN #1 tube 03/19/19 Unknown Rx topical gel] Active Meds: Active Medications Clopidogrel Bisulfate (Plavix) 75 mg PO QDAY [facility] Last Admin: 05/08/19 10:04 Dose: 75 mg Documented by: Dopamine HCl/Dextrose (Intropin Drip 800 Mg/D5w 250 Ml) 800 mg in 250 mls @ 10.035 mls/hr IV TITR MIHAI; Protocol Last Titration: 05/08/19 06:14 Dose: 14 mcg/kg/min, 23.415 mls/hr Documented by: Sodium Bicarbonate 150 meq/ (Dextrose) 1,150 mls @ 150 mls/hr IV DIRECT MIHAI Metoclopramide HCl (Reglan) 10 mg IV Q6H PRN PRN Reason: Nausea And Vomiting Last Admin: 05/07/19 17:55 Dose: 10 mg Documented by: Ondansetron HCl (Zofran) 4 mg IV Q6H PRN PRN Reason: Nausea And Vomiting Last Admin: 05/07/19 22:10 Dose: 4 mg Documented by: Pantoprazole Sodium (Protonix) 40 mg IV QDAY [facility] Last Admin: 05/08/19 10:04 Dose: 40 mg Documented by: Sodium Chloride (Sodium Chloride Flush Syringe 10 Ml) 10 ml IV BID [facility] Last Admin: 05/08/19 10:02 Dose: 10 ml Documented by: Sodium Chloride (Sodium Chloride Flush Syringe 10 Ml) 10 ml IV PRN PRN PRN Reason: LINE FLUSH Last Admin: 05/07/19 08:52 Dose: 10 ml Documented by: Review of Systems ROS unobtainable: due to endotracheal tube Exam - Vital Signs Vital signs: Vital Signs Temp Pulse Resp BP Pulse Ox 98.5 F 107 H 17 213/100 100 05/05/19 09:10 05/05/19 09:10 05/05/19 09:10 05/05/19 09:10 05/05/19 09:10 - General Appearance General appearance: intubated EENT: ATNC, other (ETT in place) Respiratory: Other (coarse breath sounds) Heart: tachycardia, S1S2 Gastrointestinal: Present: hypoactive bowel sounds Integumentary: other (LLE no edema) Neurologic: other (nonresponsive, off sedation) Results - Lab Results 05/08/19 11:59 05/08/19 06:45 Most recent lab results ABG pH 6.963 pH Units (7.350-7.450) L* 05/08/19 04:30 ABG pCO2 23.0 mm Hg 05/08/19 04:30 ABG pO2 377.2 mm Hg (80.0-90.0) H 05/08/19 04:30 ABG HCO3 5.1 mmol/L (20.0-26.0) L 05/08/19 04:30 ABG O2 Saturation 99.5 % (95.0-99.0) H 05/08/19 04:30 Calcium 6.1 mg/dL (8.4-10.2) L D 05/08/19 06:45 Assessment and Plan Impression: * Anuric CHRISTIAN secondary to ATN * Severe metabolic acidosis * Acute RLE limb ischemia s/p revascularization * RLE compartement syndrome following revascularization s/p four compartment fasciotomy * Rhabdomyolysis secondary to above * Sepsis * Acute hypoxic respiratory failure on mechanical ventilation * Hyperkalemia, mild * Anemia Plan: * Recommend initiation of renal replacement therapy for management of metabolic acidosis in setting of anuric CHRISTIAN. Multiple family members at bedside. Daughters x 2 and patient's mother present. All in agreement with dialysis * Have contacted Dr. Pretty for insertion of vascath * HD to follow - no UF for now * Empiric abx per primary team * Dose medications for renal function * Will obtain labs s/p HD treatment today * Will plan for HD again tomorrow * Monitor UOP and SCr trend for evidence of recovery
[2019-05-08 10:35] LABS: Band Neutrophils # (Manual) 0.6 K/mm3; Basophils % (Manual) 0 % (0.0-1.8); Monocytes % (Manual) 0 % (0.0-7.3); Total Cells Counted 100
[2019-05-08 10:36] LABS: Large Platelets Few; Platelet Estimate Consistent w Auto
[2019-05-08] MEDS ORDERED: NACL 0.9% 100 ML IV PRN ×2 (11:09→16:10)
[2019-05-08] MEDS ORDERED: HEPARIN IV PRN (11:09)
[2019-05-08 12:27] LABS: Hemoglobin 8.5 gm/dl (10.1-14.3)
--- NOTE | 2019-05-08 14:50 | Progress Note ---
Assessment and Plan Assessment and plan: Severe sepsis with septic shock. ID following. Continue IV antibiotics. Acute hypoxemic respiratory failure. Etiology secondary to above. GI bleed. Continue Protonix drip. GI consulted Ischemic hepatitis. GI following. Follow-up AST/ALT Acute ischemia right lower extremiity Vascular surgery reports ultimate will be for right below-knee amputation or above-knee amputation depending on arterial Doppler status, and tissue status. Heparin drip discontinued due to GI bleed. Right lower extremity compartment syndrome Status post right leg [address] Lerma. Peripheral artery disease s/p multiple vasc bypass procedures Leukocytosis ID Physician consulted Blood cultures drawn Hypertension Monitor BP Elevated LFT Repeat LFt in am Hep C Ab pos Hyperlipidemia Nicotine dependence Full CODE STATUS History Interval history: 58 y/o female with history of smoking abuse, hypertension and peripheral vascular disease s/p multiple prior revascularization with stent placement at [facility], admitted on 05/05/2019 due to severe acute onset right lef pain and cold sensation as well as decreased foot sensation and strength started on 05/03/2019. In the ED, temp 98.5, HR 107, R 17, BP 213/100. WBC 19.7. Creat 1.1. Blood culture 05/05/2019 no growth CTA demonstrates complete occlusion in the right lower extremity approximately and a pseudoaneurysm at the common iliac artery to common femoral artery bypass graft. Patient was taken to the OR on 05/05/2019 for acute right limb ischemia with motor loss and sensation loss to her foot and toes. She underwent a revascularization procedure and thrombectomy of her right lower extremity and covered stent placement, she was then taken back to the OR for right leg 4 compartment fasciotomy due to compartment syndrome status post revascularization. Patient has been in the IMCU on heparin infusion, Code MET called this morning, patient was unresponsive, hypoglycemic with POC accucheck of less than 20, GCS 3- orally intubated by ED physician. Copious secretions noted in tabitha posterior pharynx. Patient is hypotensive, dopamine was started by hospitalist and one dose of Aztreonam ordered, ABG shows severe uncompensated metabolic acidosis with pH 6.963/23/377/HCO3 5.1. Base excess -24.7 and Hgb of 6.9. Pulmonary was consulted and the patient was Orally intubated ETT 7.5 at 23cm at the lip. Patient also requiring pressors Hospitalist Physical - Constitutional Vitals: Temp Pulse Resp BP Pulse Ox 96.6 F L 107 H 30 H 96/60 100 05/08/19 12:00 05/08/19 14:00 05/08/19 14:00 05/08/19 14:00 05/08/19 14:00 General appearance: Present: mild distress - EENT Eyes: Present: PERRL, EOM intact ENT: hearing intact, clear oral mucosa, dentition normal - Neck Neck: Present: supple, normal ROM - Respiratory Respiratory effort: normal Respiratory: bilateral: CTA - Cardiovascular Rhythm: regular Heart Sounds: Present: S1 & S2. Absent: gallop, rub - Extremities Extremities: no ischemia, No edema, Full ROM - Abdominal General gastrointestinal: soft, non-tender, non-distended, normal bowel sounds - Integumentary Integumentary: Present: clear, warm, dry - Neurologic Neurologic: CNII-XII intact, moves all extremities Results - Labs CBC & Chem 7: 05/08/19 11:59 05/08/19 06:45 Labs: Laboratory Last Values WBC 7.1 K/mm3 (4.5-11.0) 05/08/19 06:45 RBC 2.62 M/mm3 (3.65-5.03) L 05/08/19 06:45 Hgb 8.5 gm/dl (10.1-14.3) L 05/08/19 11:59 Hct 26.0 % (30.3-42.9) L 05/08/19 11:59 MCV 91 fl (79-97) 05/08/19 06:45 MCH 29 pg (28-32) 05/08/19 06:45 MCHC 32 % (30-34) 05/08/19 06:45 RDW 17.2 % (13.2-15.2) H 05/08/19 06:45 Plt Count 137 K/mm3 (140-440) L 05/08/19 06:45 Lymph % (Auto) 8.5 % (13.4-35.0) L 05/06/19 04:17 [place] % (Auto) 7.2 % (0.0-7.3) 05/06/19 04:17 Eos % (Auto) 0.0 % (0.0-4.3) 05/06/19 04:17 Baso % (Auto) 0.1 % (0.0-1.8) 05/06/19 04:17 Lymph # 1.6 K/mm3 (1.2-5.4) 05/06/19 04:17 [place] # 1.4 K/mm3 (0.0-0.8) H 05/06/19 04:17 Eos # 0.0 K/mm3 (0.0-0.4) 05/06/19 04:17 Baso # 0.0 K/mm3 (0.0-0.1) 05/06/19 04:17 Add Manual Diff Complete 05/08/19 06:45 Total Counted 100 05/08/19 06:45 Seg Neutrophils % 84.2 % (40.0-70.0) H 05/06/19 04:17 Seg Neuts % (Manual) 70.0 % (40.0-70.0) 05/08/19 06:45 8.0 % 05/08/19 06:45 19.0 % (13.4-35.0) 05/08/19 06:45 Reactive Lymphs % (Man) 0 % 05/08/19 06:45 0 % (0.0-7.3) 05/08/19 06:45 1.0 % (0.0-4.3) 05/08/19 06:45 0 % (0.0-1.8) 05/08/19 06:45 2.0 % 05/08/19 06:45 0 % 05/08/19 06:45 0 % 05/08/19 06:45 0 % 05/08/19 06:45 Nucleated RBC % 4.0 % (0.0-0.9) H 05/08/19 06:45 Seg Neutrophils # 15.8 K/mm3 (1.8-7.7) H 05/06/19 04:17 Seg Neutrophils # Man 5.0 K/mm3 (1.8-7.7) 05/08/19 06:45 Band Neutrophils # 0.6 K/mm3 05/08/19 06:45 1.3 K/mm3 (1.2-5.4) 05/08/19 06:45 Abs React Lymphs (Man) 0.0 K/mm3 05/08/19 06:45 0.0 K/mm3 (0.0-0.8) 05/08/19 06:45 0.1 K/mm3 (0.0-0.4) 05/08/19 06:45 0.0 K/mm3 (0.0-0.1) 05/08/19 06:45 0.1 K/mm3 05/08/19 06:45 0.0 K/mm3 05/08/19 06:45 0.0 K/mm3 05/08/19 06:45 Blast Cells # 0.0 K/mm3 05/08/19 06:45 WBC Morphology Not Reportable 05/08/19 06:45 Hypersegmented Neuts Not Reportable 05/08/19 06:45 Hyposegmented Neuts Not Reportable 05/08/19 06:45 Hypogranular Neuts Not Reportable 05/08/19 06:45 Not Reportable 05/08/19 06:45 Not Reportable 05/08/19 06:45 Not Reportable 05/08/19 06:45 Not Reportable 05/08/19 06:45 Not Reportable 05/08/19 06:45 Not Reportable 05/08/19 06:45 Consistent w auto 05/08/19 06:45 Not Reportable 05/08/19 06:45 Plt Clumps, EDTA Not Reportable 05/08/19 06:45 Few 05/08/19 06:45 Not Reportable 05/08/19 06:45 Not Reportable 05/08/19 06:45 Plt Morphology Comment Not Reportable 05/08/19 06:45 RBC Morphology Not Reportable 05/08/19 06:45 Dimorphic RBCs Not Reportable 05/08/19 06:45 Not Reportable 05/08/19 06:45 Not Reportable 05/08/19 06:45 Not Reportable 05/08/19 06:45 Not Reportable 05/08/19 06:45 Not Reportable 05/08/19 06:45 Not Reportable 05/08/19 06:45 Not Reportable 05/08/19 06:45 Not Reportable 05/08/19 06:45 Not Reportable 05/08/19 06:45 Not Reportable 05/08/19 06:45 Not Reportable 05/08/19 06:45 Not Reportable 05/08/19 06:45 Not Reportable 05/08/19 06:45 Not Reportable 05/08/19 06:45 Not Reportable 05/08/19 06:45 Not Reportable 05/08/19 06:45 Not Reportable 05/08/19 06:45 Not Reportable 05/08/19 06:45 Not Reportable 05/08/19 06:45 Acanthocytes (Spur) Not Reportable 05/08/19 06:45 Rouleaux Not Reportable 05/08/19 06:45 Not Reportable 05/08/19 06:45 Not Reportable 05/08/19 06:45 Not Reportable 05/08/19 06:45 Not Reportable 05/08/19 06:45 Hem Pathologist Commnt No 05/08/19 06:45 PT 13.3 Sec. (12.2-14.9) 05/05/19 15:05 INR 1.04 (0.87-1.13) 05/05/19 15:05 APTT 26.0 Sec. (24.2-36.6) 05/05/19 15:05 Heparin Anti-Xa Level 0.38 U.I./ml (0.3-0.7) 05/07/19 20:49 POC ABG pH 7.152 (7.35-7.45) L 05/08/19 09:12 ABG pH 6.963 pH Units (7.350-7.450) L* 05/08/19 04:30 ABG pCO2 23.0 mm Hg 05/08/19 04:30 POC ABG pO2 103 (80-105) 05/08/19 09:12 ABG pO2 377.2 mm Hg (80.0-90.0) H 05/08/19 04:30 POC ABG HCO3 5.5 (22-26 mml/L) 05/08/19 09:12 ABG HCO3 5.1 mmol/L (20.0-26.0) L 05/08/19 04:30 POC ABG Total CO2 6 (23-27mmol/L) 05/08/19 09:12 POC ABG O2 Sat 96 05/08/19 09:12 ABG O2 Saturation 99.5 % (95.0-99.0) H 05/08/19 04:30 ABG O2 Content 10.5 (0.0-44) 05/08/19 04:30 POC ABG Base Excess -23 ((-2) - (+3)mmol/L) 05/08/19 09:12 ABG Base Excess -24.7 mmol/L (-2.0-3.0) L 05/08/19 04:30 ABG Hemoglobin 6.9 gm/dl (12.0-16.0) L 05/08/19 04:30 ABG Carboxyhemoglobin 1.1 % (0.0-5.0) 05/08/19 04:30 ABG Methemoglobin 0.7 % (0.0-1.5) 05/08/19 04:30 97.8 % (95.0-99.0) 05/08/19 04:30 45 % 05/08/19 09:12 Sodium 139 mmol/L (137-145) 05/08/19 06:45 Potassium 5.4 mmol/L (3.6-5.0) H 05/08/19 06:45 Chloride 96.7 mmol/L (98-107) L 05/08/19 06:45 Carbon Dioxide 8 mmol/L (22-30) L* 05/08/19 06:45 40 mmol/L 05/08/19 06:45 BUN 75 mg/dL (7-17) H 05/08/19 06:45 6.1 mg/dL (0.7-1.2) H 05/08/19 06:45 Estimated GFR 9 ml/min 05/08/19 06:45 12 % 05/08/19 06:45 Glucose 155 mg/dL (65-100) H 05/08/19 06:45 POC Glucose 173 (70-105) H 05/08/19 05:06 Calcium 6.1 mg/dL (8.4-10.2) L D 05/08/19 06:45 0.70 mg/dL (0.1-1.2) 05/08/19 06:45 AST 01734 units/L (5-40) H 05/08/19 06:45 ALT 4835 units/L (7-56) H 05/08/19 06:45 237 units/L (35-129) H 05/08/19 06:45 68105 units/L (30-135) H 05/08/19 06:45 4.3 g/dL (6.3-8.2) L D 05/08/19 06:45 1.8 g/dL (3.9-5) L 05/08/19 06:45 0.7 % 05/08/19 06:45 Michelle (Yellow) 05/06/19 21:10 Cloudy (Clear) 05/06/19 21:10 5.0 (5.0-7.0) 05/06/19 21:10 Ur Specific [place] 1.036 (1.003-1.030) H 05/06/19 21:10 100 mg/dl mg/dL (Negative) 05/06/19 21:10 50 mg/dL (Negative) 05/06/19 21:10 Neg mg/dL (Negative) 05/06/19 21:10 Lg (Negative) 05/06/19 21:10 Neg (Negative) 05/06/19 21:10 Neg (Negative) 05/06/19 21:10 < 2.0 mg/dL (<2.0) 05/06/19 21:10 Ur Leukocyte Esterase Neg (Negative) 05/06/19 21:10 21.0 /HPF (0.0-6.0) H 05/06/19 21:10 26.0 /HPF (0.0-6.0) 05/06/19 21:10 U Epithel Cells (Auto) 1.0 /HPF (0-13.0) 05/06/19 21:10 Amorphous Crystals 1+ 05/06/19 21:10 Random Vancomycin 28.5 ug/mL (0-40.0) 05/08/19 07:57 Plasma/Serum Alcohol < 0.01 % (0-0.07) 05/05/19 19:36 Hepatitis A IgM Ab Non-reactive (NonReactive) 05/06/19 13:39 Hep Bs Antigen Non-reactive (Negative) 05/06/19 13:39 Hep B Core IgM Ab Non-reactive (NonReactive) 05/06/19 13:39 Reactive (NonReactive) A 05/06/19 13:39 Blood Type O POSITIVE 05/08/19 06:45 Antibody Screen Negative 05/08/19 06:45 Active Medications - Current Medications Current Medications: Generic Name Dose Route Start Last Admin Trade Name Freq PRN Reason Stop Dose Admin Clopidogrel Bisulfate 75 mg 05/06/19 16:00 05/08/19 13:05 Plavix PO Not Given QDAY MIHAI Heparin Sodium (Porcine) 5,000 unit 05/08/19 11:09 Heparin IV LAUREN PRN hemodialysis Dopamine HCl/Dextrose 800 mg in 250 mls @ 10.035 mls/hr 05/08/19 05:00 05/08/19 06:14 Intropin Drip 800 Mg/D5w 250 Ml IV 14 mcg/kg/min TITR MIHAI 23.415 mls/hr Titration Protocol 6 MCG/KG/MIN Sodium Bicarbonate 150 meq/ 1,150 mls @ 150 mls/hr 05/08/19 06:00 Dextrose IV DIRECT MIHAI Sodium Chloride 100 mls @ 999 mls/hr 05/08/19 11:09 Nacl 0.9% IV LAUREN PRN Hypotension Metoclopramide HCl 10 mg 05/06/19 16:32 05/07/19 17:55 Reglan IV 10 mg Q6H PRN Administration Nausea And Vomiting Ondansetron HCl 4 mg 05/06/19 06:17 05/07/19 22:10 Zofran IV 4 mg Q6H PRN Administration Nausea And Vomiting Pantoprazole Sodium 40 mg 05/08/19 10:00 05/08/19 10:04 Protonix IV 40 mg QDAY MIHAI Administration Sodium Chloride 10 ml 05/05/19 22:00 05/08/19 10:02 Sodium Chloride Flush Syringe 10 Ml IV 10 ml BID MIHAI Administration Sodium Chloride 10 ml 05/05/19 16:59 05/07/19 08:52 Sodium Chloride Flush Syringe 10 Ml IV 10 ml PRN PRN Administration LINE FLUSH
--- NOTE | 2019-05-08 15:36 | Progress Note ---
Assessment and Plan Cultures: Blood culture 05/05/2019 no growth so far Assessment: 58 y/o female with history of smoking abuse, hypertension and peripheral vascular disease s/p multiple prior revascularization with stent placement at [facility], admitted on 05/05/2019 due to severe acute onset right lef pain and cold sensation as well as decreased foot sensation and strength started on 05/03/2019: 1) SIRS: present on admission with leukocytosis, tachycardia, likely due to acute right limb ischemia +/- right limb compartment syndrome. Blood culture so far negative. Patient has no respiratory or urinary symptoms. No recent foot wound or ulcers. 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 Patient was taken to the OR on 05/05/2019 for acute right limb ischemia with motor loss and sensation loss to her foot and toes. She underwent a revascularization procedure and thrombectomy of her right lower extremity and covered stent placement, she was then taken back to the OR same day for right leg 4 compartment fasciotomy due to compartment syndrome status post revascularization. 3) Hypertensive urgency 4) Elevated LFTs: ? unclear source 5) Hepatitis C of unknown acuity - ordered hep C PCR to evaluate 6) Acute hypoxic respiratory failure - s/p intubation Recommendations: follow up blood cultures obtain UA/urine culture and CXR stop vancomycin today patient at risk for limb amputation Liver US normal Hepatitis C PCR - ordered Will follow. Adriana Arreguin MD [facility] ([facility]) M: [phone] O: [phone] F: [phone] Subjective Date of service: 05/08/19 Interval history: intubated today for acute respiratory failure. Cultures remain negative. Objective - Exam Narrative Exam: General appearance: Intubated Eyes: anicteric sclerae, moist conjunctivae Lungs: CTA, with normal respiratory effort and no intercostal retractions CV: RRR no murmur Abdomen: Soft, non-tender; no masses or hepatosplenomegaly Extremities: +right leg marked edema covered with surgical dressings. Skin: No rash. Neuro: Intubated - Constitutional Vitals: Vital Signs Temp Pulse Resp BP Pulse Ox 96.6 F L 98 H 30 H 91/45 98 05/08/19 12:00 05/08/19 15:05 05/08/19 14:00 05/08/19 15:05 05/08/19 14:30 Temperature -Last 24 Hours Temperature 96.6 F Temperature 97.0 F Temperature 98.0 F Temperature 97.8 F - Labs CBC & Chem 7: 05/08/19 11:59 05/08/19 06:45 Labs: Abnormal lab results 05/07/19 05/07/19 05/08/19 Range/Units 15:45 15:45 02:37 WBC 22.1 H (4.5-11.0) K/mm3 RBC (3.65-5.03) M/mm3 Hgb (10.1-14.3) gm/dl Hct (30.3-42.9) % RDW 16.9 H (13.2-15.2) % Plt Count (140-440) K/mm3 Nucleated RBC % (0.0-0.9) % POC ABG pH (7.35-7.45) ABG pH (7.350-7.450) pH Units ABG pO2 (80.0-90.0) mm Hg ABG HCO3 (20.0-26.0) mmol/L ABG O2 Saturation (95.0-99.0) % ABG Base Excess (-2.0-3.0) mmol/L ABG Hemoglobin (12.0-16.0) gm/dl Sodium 135 L (137-145) mmol/L Potassium 5.9 H D (3.6-5.0) mmol/L Chloride 93.9 L (98-107) mmol/L Carbon Dioxide 12 L D (22-30) mmol/L BUN 65 H (7-17) mg/dL Creatinine 5.2 H D (0.7-1.2) mg/dL Glucose 151 H (65-100) mg/dL POC Glucose < 40 L (70-105) Calcium 7.9 L (8.4-10.2) mg/dL AST 2241 H (5-40) units/L ALT 1793 H (7-56) units/L Alkaline Phosphatase 144 H (35-129) units/L Total Creatine Kinase (30-135) units/L Total Protein (6.3-8.2) g/dL Albumin 2.7 L (3.9-5) g/dL 05/08/19 05/08/19 05/08/19 Range/Units 04:06 04:30 05:06 WBC (4.5-11.0) K/mm3 RBC (3.65-5.03) M/mm3 Hgb (10.1-14.3) gm/dl Hct (30.3-42.9) % RDW (13.2-15.2) % Plt Count (140-440) K/mm3 Nucleated RBC % (0.0-0.9) % POC ABG pH (7.35-7.45) ABG pH 6.963 L* (7.350-7.450) pH Units ABG pO2 377.2 H (80.0-90.0) mm Hg ABG HCO3 5.1 L (20.0-26.0) mmol/L ABG O2 Saturation 99.5 H (95.0-99.0) % ABG Base Excess -24.7 L (-2.0-3.0) mmol/L ABG Hemoglobin 6.9 L (12.0-16.0) gm/dl Sodium (137-145) mmol/L Potassium (3.6-5.0) mmol/L Chloride (98-107) mmol/L Carbon Dioxide (22-30) mmol/L BUN (7-17) mg/dL Creatinine (0.7-1.2) mg/dL Glucose (65-100) mg/dL POC Glucose 174 H 173 H (70-105) Calcium (8.4-10.2) mg/dL AST (5-40) units/L ALT (7-56) units/L Alkaline Phosphatase (35-129) units/L Total Creatine Kinase (30-135) units/L Total Protein (6.3-8.2) g/dL Albumin (3.9-5) g/dL 05/08/19 05/08/19 05/08/19 Range/Units 06:45 06:45 06:45 WBC (4.5-11.0) K/mm3 RBC 2.62 L (3.65-5.03) M/mm3 Hgb 7.7 L D (10.1-14.3) gm/dl Hct 23.8 L D (30.3-42.9) % RDW 17.2 H (13.2-15.2) % Plt Count 137 L (140-440) K/mm3 Nucleated RBC % 4.0 H (0.0-0.9) % POC ABG pH (7.35-7.45) ABG pH (7.350-7.450) pH Units ABG pO2 (80.0-90.0) mm Hg ABG HCO3 (20.0-26.0) mmol/L ABG O2 Saturation (95.0-99.0) % ABG Base Excess (-2.0-3.0) mmol/L ABG Hemoglobin (12.0-16.0) gm/dl Sodium (137-145) mmol/L Potassium 5.4 H (3.6-5.0) mmol/L Chloride 96.7 L (98-107) mmol/L Carbon Dioxide 8 L* (22-30) mmol/L BUN 75 H (7-17) mg/dL Creatinine 6.1 H (0.7-1.2) mg/dL Glucose 155 H (65-100) mg/dL POC Glucose (70-105) Calcium 6.1 L D (8.4-10.2) mg/dL AST 84113 H (5-40) units/L ALT 4835 H (7-56) units/L Alkaline Phosphatase 237 H (35-129) units/L Total Creatine Kinase 78287 H (30-135) units/L Total Protein 4.3 L D (6.3-8.2) g/dL Albumin 1.8 L (3.9-5) g/dL 05/08/19 05/08/19 05/08/19 Range/Units 07:57 08:39 09:12 WBC (4.5-11.0) K/mm3 RBC (3.65-5.03) M/mm3 Hgb 8.4 L (10.1-14.3) gm/dl Hct 25.6 L (30.3-42.9) % RDW (13.2-15.2) % Plt Count (140-440) K/mm3 Nucleated RBC % (0.0-0.9) % POC ABG pH 7.152 L (7.35-7.45) ABG pH (7.350-7.450) pH Units ABG pO2 (80.0-90.0) mm Hg ABG HCO3 (20.0-26.0) mmol/L ABG O2 Saturation (95.0-99.0) % ABG Base Excess (-2.0-3.0) mmol/L ABG Hemoglobin (12.0-16.0) gm/dl Sodium (137-145) mmol/L Potassium (3.6-5.0) mmol/L Chloride (98-107) mmol/L Carbon Dioxide (22-30) mmol/L BUN (7-17) mg/dL Creatinine (0.7-1.2) mg/dL Glucose (65-100) mg/dL POC Glucose 169 H (70-105) Calcium (8.4-10.2) mg/dL AST (5-40) units/L ALT (7-56) units/L Alkaline Phosphatase (35-129) units/L Total Creatine Kinase (30-135) units/L Total Protein (6.3-8.2) g/dL Albumin (3.9-5) g/dL 05/08/19 05/08/19 Range/Units 10:07 11:59 WBC (4.5-11.0) K/mm3 RBC (3.65-5.03) M/mm3 Hgb 8.5 L (10.1-14.3) gm/dl Hct 26.0 L (30.3-42.9) % RDW (13.2-15.2) % Plt Count (140-440) K/mm3 Nucleated RBC % (0.0-0.9) % POC ABG pH (7.35-7.45) ABG pH (7.350-7.450) pH Units ABG pO2 (80.0-90.0) mm Hg ABG HCO3 (20.0-26.0) mmol/L ABG O2 Saturation (95.0-99.0) % ABG Base Excess (-2.0-3.0) mmol/L ABG Hemoglobin (12.0-16.0) gm/dl Sodium (137-145) mmol/L Potassium (3.6-5.0) mmol/L Chloride (98-107) mmol/L Carbon Dioxide (22-30) mmol/L BUN (7-17) mg/dL Creatinine (0.7-1.2) mg/dL Glucose (65-100) mg/dL POC Glucose 202 H (70-105) Calcium (8.4-10.2) mg/dL AST (5-40) units/L ALT (7-56) units/L Alkaline Phosphatase (35-129) units/L Total Creatine Kinase (30-135) units/L Total Protein (6.3-8.2) g/dL Albumin (3.9-5) g/dL
--- NOTE | 2019-05-08 15:37 | Operative Report ---
Operative Report Operative Report: Date of Procedure: 05/08/2019 Pre-operative Diagnosis: Acute Renal Failure Post-operative Diagnosis: Same Procedure(s): 1. Ultrasound-Guided Access Left Common Femoral Vein 2. Placement of 30 Cm Trialysis Vascath Surgeon: Jeffrey Lerma M.D. Power Shovel Operator: Eloy Anesthesia: 2% lidocaine EBL: Minimal Counts: Correct Complications: None Condition: Critical but stable Findings: All ports aspirated and flushed easily Specimen: None Indication: The patient is a 58-year-old female who initially presented with acute right lower extremity ischemia requiring vascularization and right leg 4 compartment fasciotomy. She is now in multisystem organ failure and requires a Vas-Cath for dialysis. Her family members were given the risks, benefits, and alternative procedures and consented to the procedure. Description of Procedure: The procedure was done in the intensive care unit at the patient's bedside. Ultrasound was used to identify the patient's left common femoral vein and confirm patency. Once patency was confirmed the patient is overlying skin and soft tissue was anesthetized with lidocaine. A small stab incision was made and an access needle was used with ultrasound guidance into the left common femoral vein. A 0.035 J-wire was advanced into the vein and the tract was serially dilated. The Vas-Cath was then inserted by Seldinger technique and all ports were then aspirated and flushed and the catheter was primed with the appropriate amount of heparin. The catheter was then sewn in position with 3-0 Ethilon in interrupted fashion and dressed with a sterile dressing. The patient tolerated the procedure well and remained in the ICU in critical but stable condition.
--- NOTE | 2019-05-08 15:40 | Progress Note ---
Assessment and Plan The patient is a multisystem organ failure likely secondary to sepsis however the right leg is not likely the source. No need for emergent amputation we'll continue to follow and change dressings daily. Subjective Date of service: 05/08/19 Interval history: Events overnight noted which include the patient required intubation and becoming unresponsive. She is not a multisystem organ failure. She is also developed GI bleeding requiring cessation of the heparin drip. Objective - Constitutional Vitals: Vital Signs - 12hr 05/08/19 05/08/19 05/08/19 03:42 03:46 04:00 Temperature Pulse Rate 87 88 88 Pulse Rate [ From Monitor] Respiratory 20 20 Rate Blood Pressure 76/36 76/36 102/53 O2 Sat by Pulse 82 L Oximetry O2 Sat by Pulse Oximetry [ Anterior Bilateral] 05/08/19 05/08/19 05/08/19 04:15 04:29 04:30 Temperature Pulse Rate 88 82 83 Pulse Rate [ From Monitor] Respiratory 20 20 Rate Blood Pressure 86/47 84/46 84/46 O2 Sat by Pulse 87 92 Oximetry O2 Sat by Pulse Oximetry [ Anterior Bilateral] 05/08/19 05/08/19 05/08/19 04:45 05:00 05:15 Temperature Pulse Rate 81 79 79 Pulse Rate [ From Monitor] Respiratory 20 20 20 Rate Blood Pressure 88/48 86/51 92/52 O2 Sat by Pulse 89 87 92 Oximetry O2 Sat by Pulse Oximetry [ Anterior Bilateral] 05/08/19 05/08/19 05/08/19 05:30 05:45 06:00 Temperature Pulse Rate 73 75 76 Pulse Rate [ From Monitor] Respiratory 26 H 30 H 30 H Rate Blood Pressure 85/44 76/47 77/50 O2 Sat by Pulse 93 93 96 Oximetry O2 Sat by Pulse Oximetry [ Anterior Bilateral] 05/08/19 05/08/19 05/08/19 06:15 06:30 06:45 Temperature Pulse Rate 90 94 H 94 H Pulse Rate [ From Monitor] Respiratory 24 30 H 30 H Rate Blood Pressure 96/52 94/58 93/61 O2 Sat by Pulse 100 100 98 Oximetry O2 Sat by Pulse Oximetry [ Anterior Bilateral] 05/08/19 05/08/19 05/08/19 07:00 07:15 07:30 Temperature Pulse Rate 95 H 97 H 95 H Pulse Rate [ From Monitor] Respiratory 30 H 30 H 30 H Rate Blood Pressure 97/61 102/66 90/52 O2 Sat by Pulse 98 98 96 Oximetry O2 Sat by Pulse Oximetry [ Anterior Bilateral] 05/08/19 05/08/19 05/08/19 07:45 08:00 08:12 Temperature Pulse Rate 96 H 96 H 93 H Pulse Rate [ 96 H From Monitor] Respiratory 30 H 30 H Rate Blood Pressure 92/53 87/52 81/59 O2 Sat by Pulse 97 97 Oximetry O2 Sat by Pulse Oximetry [ Anterior Bilateral] 05/08/19 05/08/19 05/08/19 08:15 08:30 08:46 Temperature Pulse Rate 93 H 92 H 93 H Pulse Rate [ From Monitor] Respiratory 30 H 30 H 30 H Rate Blood Pressure 81/59 95/64 99/60 O2 Sat by Pulse 100 100 100 Oximetry O2 Sat by Pulse Oximetry [ Anterior Bilateral] 05/08/19 05/08/19 05/08/19 09:00 09:16 09:30 Temperature Pulse Rate 94 H 93 H 95 H Pulse Rate [ From Monitor] Respiratory 30 H 30 H 30 H Rate Blood Pressure 101/62 O2 Sat by Pulse 100 100 100 Oximetry O2 Sat by Pulse Oximetry [ Anterior Bilateral] 05/08/19 05/08/19 05/08/19 09:46 10:00 10:16 Temperature Pulse Rate 95 H 95 H 93 H Pulse Rate [ From Monitor] Respiratory 30 H 30 H 30 H Rate Blood Pressure 101/62 105/55 105/55 O2 Sat by Pulse 95 100 100 Oximetry O2 Sat by Pulse Oximetry [ Anterior Bilateral] 05/08/19 05/08/19 05/08/19 10:30 10:46 11:00 Temperature Pulse Rate 95 H 97 H 99 H Pulse Rate [ From Monitor] Respiratory 30 H 30 H 30 H Rate Blood Pressure 116/65 116/65 119/71 O2 Sat by Pulse 100 100 100 Oximetry O2 Sat by Pulse Oximetry [ Anterior Bilateral] 05/08/19 05/08/19 05/08/19 11:16 11:28 11:30 Temperature Pulse Rate 100 H 101 H 101 H Pulse Rate [ From Monitor] Respiratory 30 H 30 H Rate Blood Pressure 119/71 119/79 111/63 O2 Sat by Pulse 100 100 Oximetry O2 Sat by Pulse Oximetry [ Anterior Bilateral] 05/08/19 05/08/19 05/08/19 11:46 12:00 12:16 Temperature 96.6 F L Pulse Rate 102 H 103 H 105 H Pulse Rate [ 103 H From Monitor] Respiratory 30 H 30 H 30 H Rate Blood Pressure 111/63 98/58 98/58 O2 Sat by Pulse 100 100 100 Oximetry O2 Sat by Pulse Oximetry [ Anterior Bilateral] 05/08/19 05/08/19 05/08/19 12:30 12:46 13:00 Temperature Pulse Rate 105 H 106 H 106 H Pulse Rate [ From Monitor] Respiratory 30 H 30 H 30 H Rate Blood Pressure 106/61 106/61 97/60 O2 Sat by Pulse 100 100 100 Oximetry O2 Sat by Pulse Oximetry [ Anterior Bilateral] 05/08/19 05/08/19 05/08/19 13:16 13:30 13:46 Temperature Pulse Rate 107 H 107 H 107 H Pulse Rate [ From Monitor] Respiratory 30 H 30 H 30 H Rate Blood Pressure 97/60 84/59 84/59 O2 Sat by Pulse 100 100 100 Oximetry O2 Sat by Pulse Oximetry [ Anterior Bilateral] 05/08/19 05/08/19 05/08/19 14:00 14:30 14:40 Temperature Pulse Rate 107 H 101 H Pulse Rate [ From Monitor] Respiratory 30 H Rate Blood Pressure 96/60 106/62 O2 Sat by Pulse 100 Oximetry O2 Sat by Pulse 98 Oximetry [ Anterior Bilateral] 05/08/19 05/08/19 05/08/19 14:58 15:00 15:03 Temperature Pulse Rate 91 H 95 H 99 H Pulse Rate [ From Monitor] Respiratory Rate Blood Pressure 63/42 63/40 86/51 O2 Sat by Pulse Oximetry O2 Sat by Pulse Oximetry [ Anterior Bilateral] 05/08/19 15:05 Temperature Pulse Rate 98 H Pulse Rate [ From Monitor] Respiratory Rate Blood Pressure 91/45 O2 Sat by Pulse Oximetry O2 Sat by Pulse Oximetry [ Anterior Bilateral] Extremities: abnormal (the right leg dressing was taken down and all muscle was evaluated and found to be pink without obvious necrosis or other obvious signs of infection. The muscle did not react to stimulation.) - Labs CBC & Chem 7: 05/08/19 11:59 05/08/19 06:45 Labs: Abnormal lab results 05/07/19 05/07/19 05/08/19 Range/Units 15:45 15:45 02:37 WBC 22.1 H (4.5-11.0) K/mm3 RBC (3.65-5.03) M/mm3 Hgb (10.1-14.3) gm/dl Hct (30.3-42.9) % RDW 16.9 H (13.2-15.2) % Plt Count (140-440) K/mm3 Nucleated RBC % (0.0-0.9) % POC ABG pH (7.35-7.45) ABG pH (7.350-7.450) pH Units ABG pO2 (80.0-90.0) mm Hg ABG HCO3 (20.0-26.0) mmol/L ABG O2 Saturation (95.0-99.0) % ABG Base Excess (-2.0-3.0) mmol/L ABG Hemoglobin (12.0-16.0) gm/dl Sodium 135 L (137-145) mmol/L Potassium 5.9 H D (3.6-5.0) mmol/L Chloride 93.9 L (98-107) mmol/L Carbon Dioxide 12 L D (22-30) mmol/L BUN 65 H (7-17) mg/dL Creatinine 5.2 H D (0.7-1.2) mg/dL Glucose 151 H (65-100) mg/dL POC Glucose < 40 L (70-105) Calcium 7.9 L (8.4-10.2) mg/dL AST 2241 H (5-40) units/L ALT 1793 H (7-56) units/L Alkaline Phosphatase 144 H (35-129) units/L Total Creatine Kinase (30-135) units/L Total Protein (6.3-8.2) g/dL Albumin 2.7 L (3.9-5) g/dL 05/08/19 05/08/19 05/08/19 Range/Units 04:06 04:30 05:06 WBC (4.5-11.0) K/mm3 RBC (3.65-5.03) M/mm3 Hgb (10.1-14.3) gm/dl Hct (30.3-42.9) % RDW (13.2-15.2) % Plt Count (140-440) K/mm3 Nucleated RBC % (0.0-0.9) % POC ABG pH (7.35-7.45) ABG pH 6.963 L* (7.350-7.450) pH Units ABG pO2 377.2 H (80.0-90.0) mm Hg ABG HCO3 5.1 L (20.0-26.0) mmol/L ABG O2 Saturation 99.5 H (95.0-99.0) % ABG Base Excess -24.7 L (-2.0-3.0) mmol/L ABG Hemoglobin 6.9 L (12.0-16.0) gm/dl Sodium (137-145) mmol/L Potassium (3.6-5.0) mmol/L Chloride (98-107) mmol/L Carbon Dioxide (22-30) mmol/L BUN (7-17) mg/dL Creatinine (0.7-1.2) mg/dL Glucose (65-100) mg/dL POC Glucose 174 H 173 H (70-105) Calcium (8.4-10.2) mg/dL AST (5-40) units/L ALT (7-56) units/L Alkaline Phosphatase (35-129) units/L Total Creatine Kinase (30-135) units/L Total Protein (6.3-8.2) g/dL Albumin (3.9-5) g/dL 05/08/19 05/08/19 05/08/19 Range/Units 06:45 06:45 06:45 WBC (4.5-11.0) K/mm3 RBC 2.62 L (3.65-5.03) M/mm3 Hgb 7.7 L D (10.1-14.3) gm/dl Hct 23.8 L D (30.3-42.9) % RDW 17.2 H (13.2-15.2) % Plt Count 137 L (140-440) K/mm3 Nucleated RBC % 4.0 H (0.0-0.9) % POC ABG pH (7.35-7.45) ABG pH (7.350-7.450) pH Units ABG pO2 (80.0-90.0) mm Hg ABG HCO3 (20.0-26.0) mmol/L ABG O2 Saturation (95.0-99.0) % ABG Base Excess (-2.0-3.0) mmol/L ABG Hemoglobin (12.0-16.0) gm/dl Sodium (137-145) mmol/L Potassium 5.4 H (3.6-5.0) mmol/L Chloride 96.7 L (98-107) mmol/L Carbon Dioxide 8 L* (22-30) mmol/L BUN 75 H (7-17) mg/dL Creatinine 6.1 H (0.7-1.2) mg/dL Glucose 155 H (65-100) mg/dL POC Glucose (70-105) Calcium 6.1 L D (8.4-10.2) mg/dL AST 27519 H (5-40) units/L ALT 4835 H (7-56) units/L Alkaline Phosphatase 237 H (35-129) units/L Total Creatine Kinase 51588 H (30-135) units/L Total Protein 4.3 L D (6.3-8.2) g/dL Albumin 1.8 L (3.9-5) g/dL 05/08/19 05/08/19 05/08/19 Range/Units 07:57 08:39 09:12 WBC (4.5-11.0) K/mm3 RBC (3.65-5.03) M/mm3 Hgb 8.4 L (10.1-14.3) gm/dl Hct 25.6 L (30.3-42.9) % RDW (13.2-15.2) % Plt Count (140-440) K/mm3 Nucleated RBC % (0.0-0.9) % POC ABG pH 7.152 L (7.35-7.45) ABG pH (7.350-7.450) pH Units ABG pO2 (80.0-90.0) mm Hg ABG HCO3 (20.0-26.0) mmol/L ABG O2 Saturation (95.0-99.0) % ABG Base Excess (-2.0-3.0) mmol/L ABG Hemoglobin (12.0-16.0) gm/dl Sodium (137-145) mmol/L Potassium (3.6-5.0) mmol/L Chloride (98-107) mmol/L Carbon Dioxide (22-30) mmol/L BUN (7-17) mg/dL Creatinine (0.7-1.2) mg/dL Glucose (65-100) mg/dL POC Glucose 169 H (70-105) Calcium (8.4-10.2) mg/dL AST (5-40) units/L ALT (7-56) units/L Alkaline Phosphatase (35-129) units/L Total Creatine Kinase (30-135) units/L Total Protein (6.3-8.2) g/dL Albumin (3.9-5) g/dL 05/08/19 05/08/19 Range/Units 10:07 11:59 WBC (4.5-11.0) K/mm3 RBC (3.65-5.03) M/mm3 Hgb 8.5 L (10.1-14.3) gm/dl Hct 26.0 L (30.3-42.9) % RDW (13.2-15.2) % Plt Count (140-440) K/mm3 Nucleated RBC % (0.0-0.9) % POC ABG pH (7.35-7.45) ABG pH (7.350-7.450) pH Units ABG pO2 (80.0-90.0) mm Hg ABG HCO3 (20.0-26.0) mmol/L ABG O2 Saturation (95.0-99.0) % ABG Base Excess (-2.0-3.0) mmol/L ABG Hemoglobin (12.0-16.0) gm/dl Sodium (137-145) mmol/L Potassium (3.6-5.0) mmol/L Chloride (98-107) mmol/L Carbon Dioxide (22-30) mmol/L BUN (7-17) mg/dL Creatinine (0.7-1.2) mg/dL Glucose (65-100) mg/dL POC Glucose 202 H (70-105) Calcium (8.4-10.2) mg/dL AST (5-40) units/L ALT (7-56) units/L Alkaline Phosphatase (35-129) units/L Total Creatine Kinase (30-135) units/L Total Protein (6.3-8.2) g/dL Albumin (3.9-5) g/dL Medications & Allergies - Medications Allergies/Adverse Reactions: Allergies aspirin Allergy (Verified 05/05/19 15:05) Unknown lisinopril Allergy (Verified 05/05/19 15:05) Angioedema Penicillins Allergy (Verified 05/05/19 15:05) Swelling tramadol Allergy (Verified 05/05/19 15:05) Itching Home Medications: Home Medications Medication Instructions Recorded Confirmed Last Taken Type Acetaminophen [Mapap] 1,000 mg PO QID PRN #60 capsule 03/19/19 Unknown Rx Cyclobenzaprine [Flexeril] 10 mg PO TID PRN #30 tablet 03/19/19 Unknown Rx Diclofenac 1% [Diclofenac 1% 1 applicatio TP QID PRN #1 tube 03/19/19 Unknown Rx topical gel] Active Medications: Generic Name Dose Route Start Last Admin Trade Name Freq PRN Reason Stop Dose Admin Clopidogrel Bisulfate 75 mg 05/06/19 16:00 05/08/19 13:05 Plavix PO Not Given QDAY MIHAI Heparin Sodium (Porcine) 5,000 unit 05/08/19 11:09 Heparin IV LAUREN PRN hemodialysis Dopamine HCl/Dextrose 800 mg in 250 mls @ 10.035 mls/hr 05/08/19 05:00 05/08/19 06:14 Intropin Drip 800 Mg/D5w 250 Ml IV 14 mcg/kg/min TITR MIHAI 23.415 mls/hr Titration Protocol 6 MCG/KG/MIN Sodium Bicarbonate 150 meq/ 1,150 mls @ 150 mls/hr 05/08/19 06:00 Dextrose IV DIRECT MIHAI Sodium Chloride 100 mls @ 999 mls/hr 05/08/19 11:09 Nacl 0.9% IV LAUREN PRN Hypotension Metoclopramide HCl 10 mg 05/06/19 16:32 05/07/19 17:55 Reglan IV 10 mg Q6H PRN Administration Nausea And Vomiting Ondansetron HCl 4 mg 05/06/19 06:17 05/07/19 22:10 Zofran IV 4 mg Q6H PRN Administration Nausea And Vomiting Pantoprazole Sodium 40 mg 05/08/19 10:00 05/08/19 10:04 Protonix IV 40 mg QDAY MIHAI Administration Sodium Chloride 10 ml 05/05/19 22:00 05/08/19 10:02 Sodium Chloride Flush Syringe 10 Ml IV 10 ml BID MIHAI Administration Sodium Chloride 10 ml 05/05/19 16:59 05/07/19 08:52 Sodium Chloride Flush Syringe 10 Ml IV 10 ml PRN PRN Administration LINE FLUSH
[2019-05-08] MEDS ORDERED: Vasostrict 20 UNIT in NACL 0.9% 100 ML IV SCH (23:00)
[2019-05-09 01:40] LABS: Blood Urea Nitrogen TNR mg/dL (7-17)
[2019-05-09 01:41] LABS: BUN/Creatinine Ratio TNR; Calcium TNR mg/dL (8.4-10.2); Hemolysis Index TNR
[2019-05-09 02:02] VITALS: BP 67/38
[2019-05-09] MEDS ORDERED: SOLU-Medrol IV ONE (02:37)
[2019-05-09] MEDS ORDERED: ADRENALIN IV ONE (03:00)
[2019-05-09] MEDS ORDERED: ADRENALIN ONE (03:00)
[2019-05-09] MEDS ORDERED: CALCIUM CHLORIDE IV ONE (03:00)
[2019-05-09] MEDS ORDERED: ADRENALIN 8 MG in NACL 0.9% 250ML 242 ML IV SCH (03:00)
--- NOTE | 2019-05-09 03:03 | Consultation ---
REFERRING PHYSICIAN: Clarke Vázquez MD INDICATIONS: 1. Anemia. 2. Gastrointestinal bleed. HISTORY OF PRESENT ILLNESS: The patient is a 58-year-old female with history of hypertension, peripheral vascular disease, status post bypass, nicotine addiction as well as high cholesterol, now being seen by GI for possible GI bleed. The patient subsequently came to the hospital on 05/05/2019 for progressive right leg pain. The patient subsequently was being evaluated and managed for vascular related disease related to that. During the hospital stay, the patient subsequently started to have coffee-ground emesis and signs of GI bleed and GI was subsequently called to aid in management. No real other specific GI complaints. Denies melena. Denies any history of liver disease. No other specific complaints. PAST MEDICAL HISTORY: 1. Hypertension. 2. High cholesterol. 3. Peripheral vascular disease. ALLERGIES: ASPIRIN, LISINOPRIL, PENICILLIN AND TRAMADOL. MEDICATIONS: Reviewed and updated in chart. SOCIAL HISTORY: Smoker. FAMILY HISTORY: Negative for colon cancer. REVIEW OF SYSTEMS: GENERAL: Reports weakness. HEENT: No visual complaints or tinnitus. PULMONARY: Some shortness of breath, cough and chest pain. GASTROINTESTINAL: Reports some coffee-ground emesis. All points of 13-point review of systems were otherwise reviewed and reportedly negative. PHYSICAL EXAMINATION: VITAL SIGNS: Temperature of 98.4, pulse 99, respirations 20, blood pressure 91/50. GENERAL: Fairly nourished, intubated and sedated, in no acute distress. HEENT: Pupils are round and reactive. PULMONARY: Rhonchi. CARDIOVASCULAR: Regular rhythm. Normal S1, S2. ABDOMEN: Positive bowel sounds, soft. SKIN: No obvious rashes. LABORATORY DATA: Pertinent for white count 7.1, hemoglobin and hematocrit of 8.4 and 25.6, platelet count of 137. Chem-7 pertinent for sodium of 139, potassium 5.5, chloride 97, CO2 8, BUN and creatinine of 75 and 6.1. AST and ALT of 10,888 and 4835 respectively with alkaline phosphatase of 237 and a total bilirubin of 0.7. ASSESSMENT: A 58-year-old presents with signs and symptoms of vascular disease, now with signs and symptoms of septic shock with noted coffee-ground emesis and increased LFTs. Increased LFTs are most likely secondary to shock liver. Has no reported history of liver disease in the past and given it is very quickly and precipitous increase suspect as such. The patient has coffee-ground emesis, but given overall medical state would want to treat conservatively, with no plans to scope at this time. PLAN: 1. We will do basic liver related labs including acute hepatitis panel. 2. Liver ultrasound. 3. PPI IV drip. 4. Follow hematocrit and transfuse as needed. 5. No plans to scope unless absolutely necessary. 6. We will follow closely. JOB# [id number] CAB/NTS
--- NOTE | 2019-05-09 03:03 | Event Note ---
CODE BLUE Initial rhythm asystole ACLS protocol initiated Please refer to the code sheet for details There was ROSC However, shortly after the patient coded again There was no ROSC, time of 0252 family at bedside
--- NOTE | 2019-05-09 07:21 | Event Note ---
Date: 05/08/19 Pt nurse had called to reports hypogycemia blood glucose was 40, a lab reports revealed that the pt blood glucose was >400, while on the unit and reviewing the pt's lab, she coded. The first cardiac arrest lasted from 2:15-2:25am, the 2nd from 2:30 - 2:41 am and the 3rd from 245 to 2:52, and all atempt was stopped and pt was pronounce at 2:52 am.
[2019-05-09] MEDS ORDERED: NACL P/F VIAL (10 ML) ONE (20:00)
[2019-05-09] MEDS ORDERED: HEPARIN ONE (20:00)
[2019-05-10 16:10] LABS: Heparin-Induced Platelet Antib Negative (Negative); Unfractionated Heparin Negative (Negative)
== END 2019-05-09 02:52 | DRG 853 ==
LOC: ED 08:36 → CC1 16:59 → IMCU 17:16 → CC1 05-06 00:34 → IMCU 05-07 21:31 → CC1 05-08 03:54
PROVIDERS: ADMIT Internal Medicine; ATTEND Hospitalist
PROC: 04CR3ZZ Extirpation of Matter from Right Posterior Tibial Artery, Percutaneous Approach (ICD-10-PCS; principal; 2019-05-05)
PROC: 04CP3ZZ Extirpation of Matter from Right Anterior Tibial Artery, Percutaneous Approach (ICD-10-PCS; 2019-05-05)
PROC: 047C34Z Dilation of Right Common Iliac Artery with Drug-eluting Intraluminal Device, Percutaneous Approach (ICD-10-PCS; 2019-05-05)
PROC: 047K3DZ Dilation of Right Femoral Artery with Intraluminal Device, Percutaneous Approach (ICD-10-PCS; 2019-05-05)
PROC: 0KNS0ZZ Release Right Lower Leg Muscle, Open Approach (ICD-10-PCS; 2019-05-05)
PROC: 0KNS0ZZ Release Right Lower Leg Muscle, Open Approach (ICD-10-PCS; 2019-05-05)
PROC: 0KNS0ZZ Release Right Lower Leg Muscle, Open Approach (ICD-10-PCS; 2019-05-05)
PROC: 0KNS0ZZ Release Right Lower Leg Muscle, Open Approach (ICD-10-PCS; 2019-05-05)
PROC: B4101ZZ Fluoroscopy of Abdominal Aorta using Low Osmolar Contrast (ICD-10-PCS; 2019-05-05)
PROC: B41F1ZZ Fluoroscopy of Right Lower Extremity Arteries using Low Osmolar Contrast (ICD-10-PCS; 2019-05-05)
PROC: 5A1935Z Respiratory Ventilation, Less than 24 Consecutive Hours (ICD-10-PCS; 2019-05-08)
PROC: 0BH17EZ Insertion of Endotracheal Airway into Trachea, Via Natural or Artificial Opening (ICD-10-PCS; 2019-05-08)
PROC: 02HV33Z Insertion of Infusion Device into Superior Vena Cava, Percutaneous Approach (ICD-10-PCS; 2019-05-08)
PROC: B548ZZA Ultrasonography of Superior Vena Cava, Guidance (ICD-10-PCS; 2019-05-08)
PROC: 5A1D70Z Performance of Urinary Filtration, Intermittent, Less than 6 Hours Per Day (ICD-10-PCS; 2019-05-08)
PROC: 03HY32Z Insertion of Monitoring Device into Upper Artery, Percutaneous Approach (ICD-10-PCS; 2019-05-08)
PROC: 4A033R1 Measurement of Arterial Saturation, Peripheral, Percutaneous Approach (ICD-10-PCS; 2019-05-08)
PROC: 06HY33Z Insertion of Infusion Device into Lower Vein, Percutaneous Approach (ICD-10-PCS; 2019-05-08)
PROC: B54CZZA Ultrasonography of Left Lower Extremity Veins, Guidance (ICD-10-PCS; 2019-05-08)
PROC: 5A12012 Performance of Cardiac Output, Single, Manual (ICD-10-PCS; 2019-05-09)
DX: A41.9 Sepsis, unspecified organism (principal); R65.21 Severe sepsis with septic shock; J96.01 Acute respiratory failure with hypoxia; N17.0 Acute kidney failure with tubular necrosis; G92 Toxic encephalopathy; E87.2 Acidosis; M62.82 Rhabdomyolysis; F17.213 Nicotine dependence, cigarettes, with withdrawal; I70.92 Chronic total occlusion of artery of the extremities; I74.3 Embolism and thrombosis of arteries of the lower extremities; M79.A21 Nontraumatic compartment syndrome of right lower extremity; K92.2 Gastrointestinal hemorrhage, unspecified; T82.392A Other mechanical complication of femoral arterial graft (bypass), initial encounter; I16.0 Hypertensive urgency; E87.6 Hypokalemia; D64.9 Anemia, unspecified; E78.00 Pure hypercholesterolemia, unspecified; Y83.2 Surgical operation with anastomosis, bypass or graft as the cause of abnormal reaction of the patient, or of later complication, without mention of misadventure at the time of the procedure; I70.211 Atherosclerosis of native arteries of extremities with intermittent claudication, right leg; I46.9 Cardiac arrest, cause unspecified; D69.6 Thrombocytopenia, unspecified; I99.8 Other disorder of circulatory system; E78.2 Mixed hyperlipidemia; R57.8 Other shock; I10 Essential (primary) hypertension; Z83.3 Family history of diabetes mellitus; Z82.49 Family history of ischemic heart disease and other diseases of the circulatory system; Z88.6 Allergy status to analgesic agent; Z88.0 Allergy status to penicillin; Z88.8 Allergy status to other drugs, medicaments and biological substances; Z71.6 Tobacco abuse counseling; Z95.828 Presence of other vascular implants and grafts; Z98.1 Arthrodesis status; Y92.098 Other place in other non-institutional residence as the place of occurrence of the external cause
CPT/HCPCS: 36415; 36600; 36620; 37184; 37185; 37221; 37226; 70450; 71045; 74018; 75635; 76705; 76937; 80048; 80053; 80074; 80202; 80320; 81001; 82550; 82803; 82947; 82962; 85007; 85014; 85018; 85025; 85027; 85049; 85520; 85610; 85730; 86022; 86850; 86900; 86901; 87040; 87070; 87086; 87103; 87205; 87517; 92950; 94002; 94003; 96374; 96375; G0378; C1725; C1757; C1760; C1769; C1874; C1876; C1887; C9113; G0480; J0171; J0360; J0610; J0690; J1170; J1200; J1265; J1610; J1644; J1815; J2250; J2270; J2370; J2405; J2704; J2765; J2930; J2997; J3010; J3370; J7030; J7040; J7050; J7070; Q9967